=== PATIENT | male | born 1960 | race Caucasian/White ===

== ENCOUNTER 2021-05-29 14:30 | Inpatient (IN) | payer MEDICARE, OTHER, MEDICAID ==
[~2021-05-29] VITALS: Ht 193 cm; Wt 129.0 kg
--- NOTE | ~2021-05-29 | CON ---
[address] [address] CONSULTATION Name: TIANNA TRENT I Room: [address] IN .R.#: [id number] Admission: 05/29/21 Attend Phys: Oziel Etienne Discharge: Date of : 60 Report #: [id number] THIS REPORT FOR: cc: BLIL - No family physician/PCP BILL - No family physician/PCP Curly Up MD ~ DATE OF CONSULTATION: 06/23/2021 HISTORY OF PRESENT ILLNESS: This is a 61-year-old male patient who was unable to provide any history at all. This patient is unresponsive. The nurses tell me that he has been intermittently unresponsive. He sometime will open his eyes, but he did not do anything for me. He is being followed by multiple consultants for multiple problems. He is a DNR. 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 He was apparently on a prednisone before he came to the hospital. He apparently has an obstructive sleep apnea, diabetes, hypertension, Coumadin use as per records; I cannot tell anything because there is no history he gives. He has numerous other issues like acute kidney injuries and he is being followed by Nephrology. REVIEW OF SYSTEMS: A 14-point review of system was carried out from the records and this is all I can get. I cannot get any history of stroke or any other neurological history in this patient. FAMILY HISTORY: Unavailable. SOCIAL HISTORY: Also unavailable. PHYSICAL EXAMINATION: The patient's examination was very limited. To me, he did not even open his eyes, he did not move anything. He has no reflexes. He does not respond to the pain. He cannot tell about any other examination. He does move his eyes. His pupil looks normal size. He is morbidly obese. He is intubated. He is not on any sedation. LABORATORY DATA: Indicate decreased platelet count. He is in kidney failure. 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 IMPRESSION: This patient is unresponsive at the moment, but he was getting sedative. Although he was getting Versed, which is shorter acting, but he has a kidney problem, which will delay the excretion and he has a pretty significant cerebral atrophy as well as small vessel ischemic changes, which will delay the detoxification of those sedative, which has gone into the brain. So, his vascular clearance as well as clearance from the brain will [place] [address] CONSULTATION Name: TIANNA TRENT I Room: [address] IN .R.#: [id number] Admission: 05/29/21 Attend Phys: Oziel Etienne Discharge: Date of : 60 Report #: [id number] to give him some more time and presently continue supportive care. I will get an EEG done sometime in this patient and we will reevaluate this patient next week to see how much different he is. Thank you very much for this referral and if you have any questions, please feel free to contact me. By: [id number] Up MD /nt
--- NOTE | ~2021-05-29 | EEG ---
[address] [address] EEG STUDY REPORT Name: TIANNA TRENT I Room: [address] IN M.R.#: [id number] Admission: 05/29/21 Attend Phys: Oziel Etienne Discharge: Date of : 60 Report #: [id number] THIS REPORT FOR: cc: FAM - No family physician/PCP FAM - No family physician/PCP Curly Up MD ~ DATE OF SERVICE: 06/24/2021 This patient is being evaluated for altered mental status. EEG was done by placing the electrode by standard 10-20 system of electrode placement. Both referential and sequential montages were used for recording. Background activity in this patient's EEG is about 6 Hz and 15 microvolt. No active epileptiform activity was noticed. Photic stimulation is unremarkable. Activity is pretty slow and poorly formed. IMPRESSION: This is an abnormal EEG, which will be consistent with the diagnosis of encephalopathy caused by medications or metabolic problems. No active epileptiform activity was noticed. EEG is severely abnormal, but well-defined cortical activity is present. Thank you very much for this referral. By: 1236 [id number] Up MD /nt
[2021-05-29 14:41] VITALS: BP 125/62
[2021-05-29 14:54] LABS: HEMOGLOBIN 9.8 gm/dL (14.0-18.0); MCH 24.2 pg (26.0-34.0); MCHC 30.6 g/dL (28.0-37.0); MCV 79.3 fL (80.0-100.0); MPV 9.3 fl. (7.2-11.1); NUCLEATED RBCS 0 /100WBC; PLATELET COUNT* 144 thou/uL (150-400); RBC 4.04 mil/uL (4.50-6.00); RDW-CV 19.6 % (10.5-14.5); WBC 4.3 thou/uL (4.0-11.0)
[2021-05-29 15:05] LABS: CALCIUM 7.9 mg/dL (8.5-10.1); CREATININE 1.4 mg/dL (0.6-1.3); POTASSIUM 4.1 mmol/L (3.5-5.1)
[2021-05-29 15:15] LABS: ALBUMIN 2.8 g/dL (3.4-5.0); TOTAL BILIRUBIN 0.6 mg/dL (<0.1-1.0); TOTAL PROTEIN 6.8 g/dL (6.4-8.2)
[2021-05-29 15:27] LABS: ABSOLUTE LYMPHOCYTES 0.1 thou/uL (0.8-5.3); ABSOLUTE NEUTROPHILS 4.2 thou/uL (1.6-8.1)
[2021-05-29 15:28] LABS: ANISOCYTOSIS 2+
[2021-05-29 15:32] LABS: HYPOCHROMASIA 1+; MICROCYTES 1+; PLATELET ESTIMATE ADEQUATE
[2021-05-29 15:33] LABS: OVALOCYTES 1+; POLYCHROMASIA Occasional
[2021-05-29 15:37] LABS: BE 13.3 mmol/L (-2 to +3); pH 7.419 (7.340-7.450)
--- NOTE | 2021-05-29 15:42 | EKG ---
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: [facility] : 1960 Requested By: Win Coulter Order Number: [id number] MD: Salbador Licona Measurements Intervals [place] Rate: 77 P: 13 MI: 185 QRS: 75 QRSD: 141 T: -2 QT: 385 QTc: 436 Interpretive Statements Pacemaker spikes or probable artifact Sinus rhythm Nonspecific intraventricular conduction delay Consider anterolateral infarct of indeterminate age Minimal ST depression in the inferior leads Baseline wander in lead(s) V1,V2,V3,V4,V5 No previous ECG available for comparison Electronically Signed On 05-29-2021 15:42:27 LIVESTOCK AGENT by Salbador Licona [email or web address] <ELECTRONICALLY SIGNED> By: Salbador Licona MD, [facility] 05/29/21 1542 1452 145 Salbador Licona MD, [facility] /EPI
[2021-05-29 15:44] LABS: PO2 125.2 mmHg (75.0-100.0)
[2021-05-29] MEDS ORDERED: TIZANIDINE HCL4 M1 PO (16:20)
[2021-05-29] MEDS ORDERED: PROAIR HFA8.5 GM INH (16:20)
[2021-05-29] MEDS ORDERED: ALBUTEROL2.5 MG/31 INH (16:20)
[2021-05-29] MEDS ORDERED: NOVOLOG100 UNIT/2 SUBQ (16:21)
[2021-05-29] MEDS ORDERED: MAGNESIUM250 M1 PO (16:21)
[2021-05-29] MEDS ORDERED: HUMALOG100 UNIT/1 SUBQ (16:21)
[2021-05-29] MEDS ORDERED: ATIVAN0.5 M1 PO (16:22)
[2021-05-29] MEDS ORDERED: LACTULOSE20 GM/30 M PO (16:23)
[2021-05-29] MEDS ORDERED: ROXICODONE5 M2 PO (16:23)
[2021-05-29] MEDS ORDERED: CYMBALTA60 MG PO (16:24)
[2021-05-29] MEDS ORDERED: WARFARIN SODIUM10 MG PO (16:24)
[2021-05-29] MEDS ORDERED: FUROSEMIDE 40 M40 MG PO (16:24)
[2021-05-29] MEDS ORDERED: FLOMAX0.4 MG PO (16:24)
[2021-05-29] MEDS ORDERED: PREDNISONE 10 M10 MG PO (16:25)
[2021-05-29] MEDS ORDERED: ALLOPURINOL 10100 M3 PO (16:25)
[2021-05-29] MEDS ORDERED: PROTONIX40 M4 PO (16:25)
[2021-05-29] MEDS ORDERED: CARVEDILOL12.5 MG PO (16:25)
[2021-05-29] MEDS ORDERED: ADVAIR 100-501 EACH INH (16:25)
[2021-05-29] MEDS ORDERED: SINGULAIR 10 MG10 MG PO (16:26)
[2021-05-29] MEDS ORDERED: REQUIP 1 MG TABL1 M1 PO (16:26)
[2021-05-29 20:00] VITALS: BP 135/37
[2021-05-29 20:24] LABS: APTT 32.2 Seconds (25.0-31.3); INR 1.2; PROTIME 12.1 Seconds (9.20-11.50)
[2021-05-29 20:51] LABS: CALCIUM 7.8 mg/dL (8.5-10.1); CREATININE 1.5 mg/dL (0.6-1.3); MAGNESIUM 2.1 mg/dL (1.8-2.4); POTASSIUM 4.3 mmol/L (3.5-5.1)
[2021-05-29 22:30] VITALS: BP 135/37
[2021-05-29 22:36] LABS: CREATININE 1.5 mg/dL (0.6-1.3); POTASSIUM 4.7 mmol/L (3.5-5.1)
[2021-05-30 00:20] VITALS: BP 135/69
--- NOTE | 2021-05-30 04:18 | NUR ---
ATTEMPT TO PUT IN PRIETO CATHETER FAILED. PUREWICK POSSIBILITY DUE TO IMMOBILITY
[2021-05-30 04:23] LABS: HEMOGLOBIN 9.5 gm/dL (14.0-18.0); MCH 24.1 pg (26.0-34.0); RBC 3.94 mil/uL (4.50-6.00)
[2021-05-30 04:25] VITALS: BP 143/70
[2021-05-30 04:26] LABS: ABSOLUTE LYMPHOCYTES 0.1 thou/uL (0.8-5.3); ABSOLUTE NEUTROPHILS 1.3 thou/uL (1.6-8.1); BASOPHILS 0.7 %; HEMATOCRIT 31.4 % (42.0-52.0); LYMPHOCYTES 9.9 %; MCHC 30.3 g/dL (28.0-37.0); MCV 79.6 fL (80.0-100.0); MONOCYTES 3.3 %; MPV 9.7 fl. (7.2-11.1); NUCLEATED RBCS 1 /100WBC; PLATELET COUNT* 119 thou/uL (150-400); POLYS 86.1 %; RDW-CV 19.5 % (10.5-14.5)
[2021-05-30 04:42] LABS: INR 1.3; PROTIME 12.8 Seconds (9.20-11.50)
[2021-05-30 04:47] LABS: WBC 1.5 thou/uL (4.0-11.0)
[2021-05-30 04:50] LABS: ALBUMIN 2.6 g/dL (3.4-5.0); CREATININE 1.3 mg/dL (0.6-1.3); MAGNESIUM 2.2 mg/dL (1.8-2.4); POTASSIUM 4.2 mmol/L (3.5-5.1); TOTAL BILIRUBIN 0.5 mg/dL (<0.1-1.0); TOTAL PROTEIN 6.7 g/dL (6.4-8.2)
--- NOTE | 2021-05-30 04:52 | NUR ---
CRITICAL WBC 1.5. DR BOWERS MESSAGE SENT VIA YOU CALL AT [phone].
[2021-05-30 05:38] LABS: HEMOGLOBIN 9.4 gm/dL (14.0-18.0); MCH 24.1 pg (26.0-34.0); MCHC 30.4 g/dL (28.0-37.0); MCV 79.5 fL (80.0-100.0); MPV 9.2 fl. (7.2-11.1); NUCLEATED RBCS 0 /100WBC; PLATELET COUNT* 115 thou/uL (150-400); RDW-CV 19.9 % (10.5-14.5)
[2021-05-30 06:30] LABS: WBC 1.3 thou/uL (4.0-11.0)
[2021-05-30 08:30] LABS: ABSOLUTE LYMPHOCYTES 0.2 thou/uL (0.8-5.3); ABSOLUTE MONOCYTES 0.1 thou/uL (0.0-1.2)
[2021-05-30 08:31] LABS: ANISOCYTOSIS 1+; GIANT PLATELETS OCCASIONAL; HYPOCHROMASIA 1+; PLATELET ESTIMATE DECREASED
[2021-05-30 09:54] LABS: BE 10.1 mmol/L (-2 to +3); pH 7.407 (7.340-7.450)
[2021-05-30 09:58] LABS: PCO2 59.3 mmHg (35.0-45.0); PO2 146.7 mmHg (75.0-100.0)
[2021-05-30 12:32] VITALS: BP 136/61
--- NOTE | 2021-05-30 12:57 | 2DMMODE ---
[place] [address] 2 D/M-MODE ECHOCARDIOGRAM Name: TIANNA TRENT I Room: [address] IN [facility]#: [id number] Admission: 05/29/21 Attend Phys: Job Pierson Discharge: Date of : 60 Date of Service: 05/30/21 1257 Report #: [id number] THIS REPORT FOR: cc: FAM - No family physician/PCP FAM - No family physician/PCP Salbador Licona MD [facility] ~ APPROVED REPORT Study performed: 05/30/2021 11:00:38 EXAM: Comprehensive 2D, Doppler, and color-flow Echocardiogram Patient Location: In-Patient Room #: [facility] Status: routine BSA: 3.04 HR: 55 bpm BP: 143/70 mmHg Rhythm: NSR Other Information Technically limited study due to poor endocardial definition, body habitus. Indications COPD pulmonary edema 2D Dimensions IVSd: 13.12 (7-11mm) LVOT Diam: 27.62 (18-24mm) LVDd: 53.65 mm PWd: 14.38 (7-11mm) Ascending Ao: 39.68 (22-36mm) LVDs: 31.81 (25-40mm) Aortic Root: 42.64 mm Volumes Left Atrial Volume (Systole) LA ESV Index: 37.00 mL/m2 Aortic Valve AoV Peak Luis.: 1.34 m/s AO Peak Gr.: 7.16 mmHg LVOT Max P.83 mmHg AO Mean Gr.: 3.97 mmHg LVOT Mean P.45 mmHg LVOT Max V: 1.10 m/s AO V2 VTI: 31.81 cm LVOT Mean V: 0.72 m/[place] [address] 2 D/M-MODE ECHOCARDIOGRAM Name: TIANNA TRENT I Room: [address] IN ..#: [id number] Admission: 05/29/21 Attend Phys: Job Pierson Discharge: Date of : 60 Date of Service: 05/30/21 1257 Report #: [id number] ELIESER (VTI): 5.15 cm2 LVOT V1 VTI: 27.34 cm Mitral Valve E/A Ratio: 1.95 MV Decel. Time: 235.94 ms MV E Max Luis.: 1.21 m/s MV PHT: 68.42 ms MVA (PHT): 3.22 cm2 Pulmonary Valve PV Peak Luis.: 1.09 m/s PV Peak Gr.: 4.73 mmHg Left Ventricle The left ventricle is normal size. There is normal LV segmental wall motion. Mild concentric left ventricular hypertrophy. Left ventricular systolic function is normal. The left ventricular ejection fraction is within the normal range. LVEF is 55-60%. The left ventricular diastolic function is normal. Right Ventricle The right ventricle is normal size. The right ventricular systolic function is normal. Atria Left atrium is mildly dilated. The right atrium size is normal. Aortic Valve Mild aortic valve sclerosis. Mild aortic regurgitation. There is no aortic valvular stenosis. Mitral Valve The mitral valve is normal in structure. There is no mitral valve regurgitation noted. No evidence of mitral valve stenosis. Tricuspid Valve The tricuspid valve is normal in structure. There is no tricuspid valve regurgitation noted. Pulmonic Valve The pulmonary valve is normal in structure. There is no pulmonic valvular regurgitation. Great Vessels The aortic root is normal in size. IVC is normal in size and collapses >50% [place] [address] 2 D/M-MODE ECHOCARDIOGRAM Name: TIANNA TRENT I Room: [address] IN [facility]#: [id number] Admission: 05/29/21 Attend Phys: Job Pierson Discharge: Date of : 60 Date of Service: 05/30/21 [facility] Report #: [id number] Pericardium There is no pericardial effusion. Left pleural effusion. <Conclusion> The left ventricle is normal size. Mild concentric left ventricular hypertrophy. Left ventricular systolic function is normal. The left ventricular ejection fraction is within the normal range. LVEF is 55-60%. The left ventricular diastolic function is normal. The right ventricle is normal size. Left atrium is mildly dilated. Mild aortic valve sclerosis. Mild aortic regurgitation. There is no aortic valvular stenosis. The mitral valve is normal in structure. The tricuspid valve is normal in structure. IVC is normal in size and collapses >50% with inspiration. There is no pericardial effusion. There is normal LV segmental wall motion. <ELECTRONICALLY SIGNED> By: Salbador Licona MD, FACC 05/30/21 1257 1257 1257 Salbador Licona MD, FACC /INF
[2021-05-30 16:00] VITALS: BP 142/59
--- NOTE | 2021-05-30 16:46 | NUR ---
CM ASSESSMENT ASSESSMENT COMPLETED WITH PT (JACQUELINE TRENT [phone]). PT CAME TO [facility] FROM [facility] ([phone]). REPORTS PT DOES NOT WANT TO RETURN TO ANY SNF UPON DC AND ONLY WANTS TO DC HOME. PT OPEN TO DC HOME WITH HH AND ONLY WANTS REFERRAL TO [facility]. PT WILL NEED STRETCHER TRANSPORT UPON DC. CM TO FOLLOW. PT'S HOME IS A SINGLE STORY HOME WITH A RAMP AT ENTRY. PT USES A WALKER TO PIVOT AND A WHEELCHAIR FOR MOBILITY. PT USES 4L O2 AT HOME PROVIDED BY [facility] ([phone]) AND A TRILOGY PROVIDED BY [facility] ([phone]). PT COMPLETES ADLS. PT HAS BEEN TO SNF AT [facility] AND HAS HAD HH VIA [facility]. PT IS DPOA.
--- NOTE | 2021-05-30 19:30 | NUR ---
ASSUMED CARE AT 0720 THIS AM UNTIL PRESENT. THIS PATIENT IS VERY LARGE, AND HAS TESTED POSITIVE FOR COVID. HE IS A FPC PATIENT AT [facility]. PATIENT ON BIPAP 100. BREATH SOUNDS DIMINISHED. PATIENT WAS PLACED ON BARIATRIC BED AT 1200. HUGE BM CLEANED UP. PATIENT IS INCONTINENT OF URINE AND BM. PATIENT IS NOT GOOD AT HELPING MOVE IN BED. SAYS HE CANT HELP. PATIENT EDEMATOUS ALL OVER. STILL NEED UA AND SPUTUM CULTURES. UNABLE TO OBRTAIN. PATIENT HAD ULTRASOUND OF LOWER EXTREMITIES TODAY. PATIENT IS ALSO TO HAVE A CT OF CHEST, BUT UNABLE TO TOLERATE AT THIS TIME.
--- NOTE | 2021-05-30 19:49 | CON ---
[address] [address] CONSULTATION Name: ITANNA TRENT I Room: [address] IN .R.#: [id number] Admission: 05/29/21 Attend Phys: Oziel Etienne Discharge: Date of : 60 Report #: [id number] THIS REPORT FOR: cc: BILL - No family physician/PCP FAM - No family physician/PCP Gilles Sims MD ~ DATE OF CONSULTATION: 05/29/2021 3CONSULT HAS BEEN REQUESTED BY: Job Pierson DO. INDICATION FOR CONSULTATION: Acute on chronic hypercarbic respiratory failure/COVID-19. HISTORY OF PRESENT ILLNESS: This is a 61-year-old gentleman, past medical history includes a history of COPD. The patient is on Trelegy as well as 4 liters oxygen continuous at home. He has been using the prednisone at home. It is not known to me as to whether this is a long-term use. The patient has also been on Coumadin. It is not fully apparent as to whether he currently was on Coumadin at home. He has not been vaccinated for COVID-19. The patient is now admitted with acute shortness of breath. Currently, he is on 75% FiO2. He still has significant CO2 retention, but pH has now normalized and O2 saturation has come up to the high 90s. He does have a cough. There is not much sputum. There is significant swelling of lower extremities. He does report initially having had body aches. No known fever or chills. He did not have upper respiratory complaints initially. REVIEW OF SYSTEMS: For 12 points is negative except as mentioned above. PAST MEDICAL HISTORY: COPD, on oxygen long-term, on Trilogy long-term, possible long-term prednisone use. Obstructive sleep apnea, diabetes, hypertension. Coumadin use, indication not known at this time. Hypertension. The patient's current creatinine is 1.4. I do not have his baseline creatinine. Anal fissure, irritable bowel syndrome. SOCIAL HISTORY: Extensive history of smoking. ALLERGIES: NO KNOWN DRUG ALLERGIES. CURRENT MEDICATIONS: List in [employer] reviewed. HOME MEDICATIONS: List in [employer] reviewed. FAMILY HISTORY: No pertinent family [place] [address] CONSULTATION Name: TWANTIANNA Valero Room: [address]#: [id number] Admission: 05/29/21 Attend Phys: Oziel Etienne Discharge: Date of : 60 Report #: [id number] PHYSICAL EXAMINATION: GENERAL: He is alert, awake and oriented, but able to provide only a limited history on account of being on BiPAP, VITAL SIGNS: Records reviewed. Head is normocephalic and atraumatic. There is a BiPAP in place. He has a narrow airway. NECK: Does not show raised JVP, asymmetry, mass or lymph nodes. CHEST: Symmetrical expansion on inspection and palpation. On auscultation, breath sounds are equal, decreased. Expirations are prolonged. I do not hear any added sounds. HEART: Regular. There is no murmur. ABDOMEN: Soft and nontender. EXTREMITIES: Lower extremities show 2-3+ edema bilaterally. There are significant chronic venous changes consistent with chronic venous insufficiency. NEUROLOGIC: Moves all extremities bilaterally equally and spontaneously with no focal deficit identified. LABORATORY DATA: The patient's chest x-ray is a limited study and is reviewed. There are extensive bilateral infiltrates. The patient may have a pleural effusion on the left side as well. ASSESSMENT AND PLAN: 1. Acute on chronic hypoxemic and hypercarbic respiratory failure. He is currently on BiPAP with AVAPS mode. Depending on his oxygen needs, he could be kept on this or switch over to his home Trelegy. Recommend to keep him on either BiPAP and AVAPS mode or Trelegy while asleep, recommend using the same p.r.n. while awake. 2. COVID-19. Continue steroid. Considering a significant history of chronic obstructive pulmonary disease, he needs a higher dose of steroid, which is ordered. Recommend starting remdesivir. Recommend also giving him Actemra. 3. Chronic obstructive pulmonary disease exacerbation, dexamethasone as above. Also, we will treat him with nebulized bronchodilators. 4. Pulmonary infiltrates. Continue ceftriaxone. I increased the dose, added doxycycline. 5. Obstructive sleep apnea, see discussion above. 6. Chronic venous insufficiency/history of Coumadin use. We will try to clarify as to whether he is taking Coumadin currently or not. We will also check an INR. We will check an echo. He has significant chronic venous insufficiency. In case he is not currently on anticoagulation, then I would recommend obtaining venous Dopplers and we may in fact consider initiating anticoagulation as well in case his D-dimer is elevated. 7. Pleural effusions, I would recommend assessing further by CT chest without contrast. He may need a thoracentesis based on the CT results. 8. Deep vein thrombosis prophylaxis. See discussion above. 9. Hyperglycemia/history of diabetes. Insulin per primary service. [address] [place] [address] CONSULTATION Name: TIANNA TRENT Marylu Room: [address]#: [id number] Admission: 05/29/21 Attend Phys: Oziel Etienne Discharge: Date of : 60 Report #: [id number] 10. Gastrointestinal prophylaxis, Protonix. 11. Clostridium difficile prophylaxis, Lactinex. The patient is critically ill at this time. Total time spent providing critical care to this patient today exceeds 41 minutes. <ELECTRONICALLY SIGNED> By: Gilles Sims MD 05/30/21 1949 1848 1936Ajoanna Sims MD /nt
[2021-05-30 20:00] VITALS: BP 149/63
[2021-05-31] VITALS (30 sets, daily range): BP systolic 95–184; BP diastolic 43–93
[2021-05-31 04:42] LABS: ALBUMIN 2.8 g/dL (3.4-5.0); CALCIUM 8.2 mg/dL (8.5-10.1); CREATININE 1.3 mg/dL (0.6-1.3); MAGNESIUM 2.3 mg/dL (1.8-2.4); PHOSPHORUS* 4.5 mg/dL (2.5-4.9); POTASSIUM 4.3 mmol/L (3.5-5.1); TOTAL BILIRUBIN 0.5 mg/dL (<0.1-1.0); TOTAL PROTEIN 6.7 g/dL (6.4-8.2)
[2021-05-31 04:56] LABS: ABSOLUTE LYMPHOCYTES 0.2 thou/uL (0.8-5.3); ABSOLUTE MONOCYTES 0.1 thou/uL (0.0-1.2); ABSOLUTE NEUTROPHILS 2.5 thou/uL (1.6-8.1); BASOPHILS 0.9 %; EOSINOPHILS 0.1 %; HEMATOCRIT 34.2 % (42.0-52.0); LYMPHOCYTES 7.4 %; MCHC 29.4 g/dL (28.0-37.0); MCV 81.7 fL (80.0-100.0); MONOCYTES 3.6 %; MPV 10.5 fl. (7.2-11.1); NUCLEATED RBCS 0 /100WBC; PLATELET COUNT* 147 thou/uL (150-400); RBC 4.18 mil/uL (4.50-6.00); RDW-CV 19.6 % (10.5-14.5); WBC 2.8 thou/uL (4.0-11.0)
[2021-05-31 06:22] LABS: APTT 33.9 Seconds (25.0-31.3); INR 1.3; PROTIME 13.1 Seconds (9.20-11.50)
[2021-05-31 08:39] LABS: BE 9.7 mmol/L (-2 to +3)
[2021-05-31 08:42] LABS: PCO2 59.5 mmHg (35.0-45.0); PO2 133.5 mmHg (75.0-100.0)
--- NOTE | 2021-05-31 09:50 | NUR ---
Pt is admitted to the hospital on 05/29/21 with Respiratory Failure/Covid 19. Pt is currently on Bipap. Called - Kira at: to complete assessment. Pt lives with in a house with a handicapped accessible ramp in the front. Pt was mainly wheelchair bound and required 24 hour care. Pt has a walker, wheelchair, and lift chair. Pt had a recent stay at [facility] (approximately 7 days in 04/2021). Pt has a hx of [facility]. Pt fills prescriptions at [facility] on [address] Pt's PCP is Dr. Kaleb Mercer. is asking for a virtual reality visit. Will contact service [facility] to arrange this. is really wanting to bring pt home vs SNF and reports she can take care of him at home as long as she can transfer him. is asking if we have correct health insurance info and reports pt has [employer] as a secondary not [place] Medicaid as listed. Will share a copy of card with admitting. CM to continue to follow for discharge planning.
[2021-05-31 17:11] LABS: BE 14.4 mmol/L (-2 to +3); PO2 75.8 mmHg (75.0-100.0)
[2021-05-31 17:14] LABS: PCO2 70.8 mmHg (35.0-45.0)
[2021-05-31 18:21] LABS: CALCIUM 6.5 mg/dL (8.5-10.1); CREATININE 1.1 mg/dL (0.6-1.3); MAGNESIUM 1.9 mg/dL (1.8-2.4)
[2021-05-31 18:24] LABS: POTASSIUM 3.1 mmol/L (3.5-5.1)
--- NOTE | 2021-05-31 19:29 | NUR ---
pt self extubated this afternoon. A&O x3. Anxious. Precedex gtt. Wants water and food. updated. CLRT.
[2021-06-01] VITALS (65 sets, daily range): BP systolic 92–178; BP diastolic 49–84
[2021-06-01 00:28] LABS: BE 11.6 mmol/L (-2 to +3); PO2 63.8 mmHg (75.0-100.0); pH 7.363 (7.340-7.450)
[2021-06-01 00:30] LABS: PCO2 71.2 mmHg (35.0-45.0)
--- NOTE | 2021-06-01 01:58 | NUR ---
DR. CORTES WAS CALLED AT 2104 FOR PATIENT AGITATED ON BIPAP. VITALS WERE READ OFF AND NOTIFIED OF CURRENT PRECEDEX DRIP RUNNING WITH NO AVAIL TO HELP PATIENT REMAIN CALM. DUE TO AGITATION, DESATURATION, AND PATIENT DECOMPENSATING, DR. CORTES ORDERED FOR PATIENT TO BE REINTUBATED. ER DR WAS CALLED AND INTUBATION WAS PERFORMED. 2116 - TIMEOUT 2116 - 20MG ETOMIDATE 2118 - 150MG SUCCINYLCHOLINE 2119 - INTUBATION 2121 - X-RAY CALLED FOR STAT CXR
[2021-06-01 04:45] LABS: ABSOLUTE LYMPHOCYTES 0.1 thou/uL (0.8-5.3); ABSOLUTE NEUTROPHILS 1.7 thou/uL (1.6-8.1); BASOPHILS 0.9 %; HEMATOCRIT 28.4 % (42.0-52.0); HEMOGLOBIN 8.5 gm/dL (14.0-18.0); LYMPHOCYTES 6.5 %; MCH 24.3 pg (26.0-34.0); MCHC 29.8 g/dL (28.0-37.0); MCV 81.6 fL (80.0-100.0); MONOCYTES 2.4 %; MPV 10.1 fl. (7.2-11.1); NUCLEATED RBCS 0 /100WBC; PLATELET COUNT* 106 thou/uL (150-400); POLYS 90.2 %; RBC 3.48 mil/uL (4.50-6.00); RDW-CV 19.6 % (10.5-14.5)
[2021-06-01 05:13] LABS: ALBUMIN 2.6 g/dL (3.4-5.0); CREATININE 1.5 mg/dL (0.6-1.3); MAGNESIUM 2.4 mg/dL (1.8-2.4); TOTAL BILIRUBIN 0.6 mg/dL (<0.1-1.0); TOTAL PROTEIN 5.5 g/dL (6.4-8.2)
[2021-06-01 05:15] LABS: PHOSPHORUS* 4.2 mg/dL (2.5-4.9)
[2021-06-01 05:22] LABS: POTASSIUM 4.2 mmol/L (3.5-5.1)
[2021-06-01 06:22] LABS: WBC 1.9 thou/uL (4.0-11.0)
[2021-06-01 09:33] LABS: BE 15.8 mmol/L (-2 to +3); PO2 67.4 mmHg (75.0-100.0); pH 7.376 (7.340-7.450)
[2021-06-01 09:43] LABS: PCO2 76.1 mmHg (35.0-45.0)
[2021-06-01 14:33] LABS: BE 11.7 mmol/L (-2 to +3); PO2 84.8 mmHg (75.0-100.0); pH 7.448 (7.340-7.450)
[2021-06-01 14:38] LABS: PCO2 55.3 mmHg (35.0-45.0)
--- NOTE | 2021-06-01 15:16 | NUR ---
ICU Rounds: Pt remains intubated and sedated Isolation: Pt remains in Covid isolation Intubated: 06/01/21 Oxygen Needs: 100%Fio2 Peep of 14 Living Situation: Lives with - Kira at: DPOA:None Discharge Plan: Unknown at this time Arranged for to have facetime/virtual visit with pt today. continues to hope we can wean pt off ventilator as she would really like for him to be able to come home vs going to SNF - as pt was recently at [facility]. They extubated pt -however he went into respiratory distress and he had to be re-intubated. CM to continue to follow for discharge planning.
[2021-06-01 16:16] LABS: CALCIUM 8.1 mg/dL (8.5-10.1); CREATININE 1.5 mg/dL (0.6-1.3); MAGNESIUM 2.3 mg/dL (1.8-2.4); POTASSIUM 3.9 mmol/L (3.5-5.1)
--- NOTE | 2021-06-01 17:04 | NUR ---
DR. CORTES ROUNDED ABOUT 1100 TODAY. PT WAS DE-SATING AT THIS TIME. ONE TIME DOSE OF ATIVAN IVP WAS GIVEN AND PT WAS CHANGED FROM CMV TO PC. TOLD ABOUT ABG RESULTS. PT IS SO HARD TO SEDATE, IT WAS DECIDED TO UP THE MAX DOSE OF VERSED TO 20 MG/HR AND THE MAX DOSE OF FENTANYL TO 200 MCG/HR. ATIVAN BOLUSES ALSO ADDED TO THE MAR. PER DR. CORTES AT 1500, ANESTHESIA CAME AND PLACED AN ART LINE. LAURA WAS CALLED FOR CONSENT AND GIVEN AN UPDATE. PT BRADYCARDIA IS STABLE. TF RESTARTED. REPEAT ABG AND BMP ORDERED. REPEAT ABG RESULTS COMMUNICATED TO DR. CORTES.
[2021-06-02] VITALS (82 sets, daily range): BP systolic 133–239; BP diastolic 47–116
[2021-06-02 05:52] LABS: HEMOGLOBIN 8.3 gm/dL (14.0-18.0); MCH 24.5 pg (26.0-34.0); MCHC 30.8 g/dL (28.0-37.0); MCV 79.7 fL (80.0-100.0); MPV 10.8 fl. (7.2-11.1); NUCLEATED RBCS 0 /100WBC; PLATELET COUNT* 106 thou/uL (150-400); RBC 3.39 mil/uL (4.50-6.00); RDW-CV 19.8 % (10.5-14.5)
[2021-06-02 06:00] LABS: CREATININE 1.4 mg/dL (0.6-1.3); MAGNESIUM 2.5 mg/dL (1.8-2.4); PHOSPHORUS* 2.7 mg/dL (2.5-4.9); POTASSIUM 3.7 mmol/L (3.5-5.1)
[2021-06-02 06:49] LABS: APTT 31.9 Seconds (25.0-31.3); INR 1.4; PROTIME 13.9 Seconds (9.20-11.50)
[2021-06-02 07:56] LABS: ABSOLUTE LYMPHOCYTES 0.2 thou/uL (0.8-5.3); ABSOLUTE NEUTROPHILS 1.8 thou/uL (1.6-8.1); ANISOCYTOSIS 1+; HYPOCHROMASIA 2+; PLATELET ESTIMATE DECREASED
[2021-06-02 16:50] LABS: % SATURATION 20 % (20-39); IRON 56 ug/dL (50-175)
[2021-06-02 17:37] LABS: BE 9.8 mmol/L (-2 to +3); PCO2 46.8 mmHg (35.0-45.0); pH 7.483 (7.340-7.450)
--- NOTE | 2021-06-02 20:08 | NUR ---
PT HAVING HYPERTENSION ISSUES, DR. CAMPA CALLED. HYDRALAZINE ORDERED.
[2021-06-03] VITALS (46 sets, daily range): BP systolic 124–178; BP diastolic 38–78
[2021-06-03 04:36] LABS: ABSOLUTE LYMPHOCYTES 0.1 thou/uL (0.8-5.3); ABSOLUTE MONOCYTES 0.1 thou/uL (0.0-1.2); ABSOLUTE NEUTROPHILS 3.5 thou/uL (1.6-8.1); BASOPHILS 0.4 %; HEMATOCRIT 27.8 % (42.0-52.0); HEMOGLOBIN 8.4 gm/dL (14.0-18.0); LYMPHOCYTES 3.3 %; MCH 24.5 pg (26.0-34.0); MCHC 30.3 g/dL (28.0-37.0); MCV 80.9 fL (80.0-100.0); MONOCYTES 2.2 %; MPV 10.2 fl. (7.2-11.1); NUCLEATED RBCS 0 /100WBC; PLATELET COUNT* 119 thou/uL (150-400); POLYS 94.1 %; RBC 3.44 mil/uL (4.50-6.00); WBC 3.7 thou/uL (4.0-11.0)
[2021-06-03 05:04] LABS: INR 1.3; PROTIME 13.6 Seconds (9.20-11.50)
[2021-06-03 05:25] LABS: ALBUMIN 2.5 g/dL (3.4-5.0); CREATININE 1.4 mg/dL (0.6-1.3); POTASSIUM 3.2 mmol/L (3.5-5.1); TOTAL BILIRUBIN 0.5 mg/dL (<0.1-1.0); TOTAL PROTEIN 5.3 g/dL (6.4-8.2)
[2021-06-03 05:53] LABS: BE 10.3 mmol/L (-2 to +3); PO2 67.7 mmHg (75.0-100.0); pH 7.449 (7.340-7.450)
[2021-06-03 05:55] LABS: PCO2 52.6 mmHg (35.0-45.0)
[2021-06-04] VITALS (12 sets, daily range): BP systolic 139–166; BP diastolic 42–53
[2021-06-04 08:14] LABS: ABSOLUTE BASOPHILS 0.1 thou/uL (0.0-0.2); ABSOLUTE LYMPHOCYTES 0.1 thou/uL (0.8-5.3); ABSOLUTE MONOCYTES 0.1 thou/uL (0.0-1.2); ABSOLUTE NEUTROPHILS 7.4 thou/uL (1.6-8.1); HEMATOCRIT 30.1 % (42.0-52.0); HEMOGLOBIN 8.9 gm/dL (14.0-18.0); LYMPHOCYTES 1.4 %; MCH 24.2 pg (26.0-34.0); MCHC 29.5 g/dL (28.0-37.0); MONOCYTES 1.9 %; MPV 10.4 fl. (7.2-11.1); NUCLEATED RBCS 0 /100WBC; PLATELET COUNT* 124 thou/uL (150-400); POLYS 95.7 %; RBC 3.67 mil/uL (4.50-6.00); RDW-CV 20.2 % (10.5-14.5); WBC 7.8 thou/uL (4.0-11.0)
[2021-06-04 08:18] LABS: CALCIUM 8.4 mg/dL (8.5-10.1); CREATININE 1.5 mg/dL (0.6-1.3); MAGNESIUM 2.7 mg/dL (1.8-2.4); POTASSIUM 3.7 mmol/L (3.5-5.1)
[2021-06-04 09:43] LABS: pH 7.334 (7.340-7.450)
[2021-06-04 09:45] LABS: PCO2 68.6 mmHg (35.0-45.0)
[2021-06-04 09:46] LABS: PO2 53.2 mmHg (75.0-100.0)
[2021-06-04 10:57] LABS: BE 8.7 mmol/L (-2 to +3); PCO2 48.2 mmHg (35.0-45.0); pH 7.461 (7.340-7.450)
[2021-06-04 10:59] LABS: PO2 125.5 mmHg (75.0-100.0)
[2021-06-04 13:27] LABS: PO2 77.7 mmHg (75.0-100.0); pH 7.438 (7.340-7.450)
[2021-06-04 13:32] LABS: PCO2 50.2 mmHg (35.0-45.0)
--- NOTE | 2021-06-04 16:16 | NUR ---
ICU Rounds: Pt remains intubated and sedated Isolation: Still in Covid Isolation Intubated: 05/31/21 Living Situation: Lives with spouse - Kira DPOA: None Oxygen Needs: 100%Fio2 Peep of 16 D/C Plan: Anticipating need for LTACH CM to continue to follow for discharge planning.
--- NOTE | 2021-06-04 19:23 | NUR ---
PATIENT DESATS OFF AND ON THROUGHOUT THE DAY REQUIRING TO BE BAGGED X3. PROPOFOL STARTED. INSLULIN GTT. D5W. URINE OUTPUT ONLY 85 ML'S. PHYSICIAN NOTIFIED OF DECREASED URINE OUTPUT. CLRT. BLOOD SUGARS HIGH, TITRATING INSULIN GTT. IV LASIX 60MG. K+. REMDESIVIR. ZOSYN. AFEBRILE. 100% FIO2 VENT.
[2021-06-04 20:15] LABS: CALCIUM 8.2 mg/dL (8.5-10.1); CREATININE 1.7 mg/dL (0.6-1.3); MAGNESIUM 2.6 mg/dL (1.8-2.4); POTASSIUM 3.6 mmol/L (3.5-5.1)
[2021-06-04 20:21] LABS: LIPASE 72 U/L (73-393); TRIGLYCERIDE 523 mg/dL (<150)
[2021-06-05] VITALS (35 sets, daily range): BP systolic 145–211; BP diastolic 45–61
[2021-06-05 04:38] LABS: APTT 25.4 Seconds (25.0-31.3); INR 1.3; PROTIME 13.5 Seconds (9.20-11.50)
[2021-06-05 04:43] LABS: ALBUMIN 2.5 g/dL (3.4-5.0); CALCIUM 8.4 mg/dL (8.5-10.1); CREATININE 1.5 mg/dL (0.6-1.3); MAGNESIUM 2.7 mg/dL (1.8-2.4); POTASSIUM 3.8 mmol/L (3.5-5.1); TOTAL BILIRUBIN 0.4 mg/dL (<0.1-1.0); TOTAL PROTEIN 5.3 g/dL (6.4-8.2)
[2021-06-05 05:00] LABS: ABSOLUTE LYMPHOCYTES 0.1 thou/uL (0.8-5.3); ABSOLUTE MONOCYTES 0.1 thou/uL (0.0-1.2); ABSOLUTE NEUTROPHILS 6.6 thou/uL (1.6-8.1); BASOPHILS 0.6 %; HEMATOCRIT 31.3 % (42.0-52.0); HEMOGLOBIN 9.3 gm/dL (14.0-18.0); MCH 24.4 pg (26.0-34.0); MCHC 29.8 g/dL (28.0-37.0); MCV 81.8 fL (80.0-100.0); MONOCYTES 1.2 %; MPV 10.8 fl. (7.2-11.1); NUCLEATED RBCS 0 /100WBC; PLATELET COUNT* 119 thou/uL (150-400); POLYS 96.2 %; RBC 3.83 mil/uL (4.50-6.00); RDW-CV 20.1 % (10.5-14.5); WBC 6.8 thou/uL (4.0-11.0)
[2021-06-05 08:08] LABS: BE 7.7 mmol/L (-2 to +3); PO2 69.9 mmHg (75.0-100.0)
[2021-06-05 08:11] LABS: PCO2 62.6 mmHg (35.0-45.0)
[2021-06-05 17:56] LABS: CALCIUM 6.7 mg/dL (8.5-10.1); MAGNESIUM 2.2 mg/dL (1.8-2.4); POTASSIUM 4.1 mmol/L (3.5-5.1)
[2021-06-05 18:13] LABS: CREATININE 1.3 mg/dL (0.6-1.3)
[2021-06-05 19:27] LABS: CALCIUM 8.5 mg/dL (8.5-10.1); CREATININE 1.5 mg/dL (0.6-1.3); MAGNESIUM 2.6 mg/dL (1.8-2.4); POTASSIUM 4.4 mmol/L (3.5-5.1)
[2021-06-06] VITALS (11 sets, daily range): BP systolic 117–148; BP diastolic 34–52
[2021-06-06 03:52] LABS: HEMATOCRIT 35.1 % (42.0-52.0); MCH 24.2 pg (26.0-34.0); MCHC 28.5 g/dL (28.0-37.0); MCV 84.9 fL (80.0-100.0); MPV 10.6 fl. (7.2-11.1); NUCLEATED RBCS 0 /100WBC; PLATELET COUNT* 147 thou/uL (150-400); RBC 4.14 mil/uL (4.50-6.00); RDW-CV 20.7 % (10.5-14.5); WBC 12.1 thou/uL (4.0-11.0)
[2021-06-06 04:11] LABS: ALBUMIN 2.7 g/dL (3.4-5.0); CALCIUM 8.5 mg/dL (8.5-10.1); CREATININE 1.8 mg/dL (0.6-1.3); MAGNESIUM 2.8 mg/dL (1.8-2.4); PHOSPHORUS* 5.4 mg/dL (2.5-4.9); POTASSIUM 4.3 mmol/L (3.5-5.1); TOTAL BILIRUBIN 0.4 mg/dL (<0.1-1.0); TOTAL PROTEIN 5.7 g/dL (6.4-8.2)
[2021-06-06 06:53] LABS: ABSOLUTE LYMPHOCYTES 0.6 thou/uL (0.8-5.3); ABSOLUTE MONOCYTES 0.1 thou/uL (0.0-1.2); ABSOLUTE NEUTROPHILS 11.4 thou/uL (1.6-8.1)
[2021-06-06 06:54] LABS: PLATELET ESTIMATE DECREASED
[2021-06-06 06:55] LABS: ANISOCYTOSIS 2+; HYPOCHROMASIA 1+
[2021-06-06 07:47] LABS: BE 1.3 mmol/L (-2 to +3); PO2 71.1 mmHg (75.0-100.0)
[2021-06-06 07:50] LABS: PCO2 89.5 mmHg (35.0-45.0); pH 7.167 (7.340-7.450)
[2021-06-06 11:00] LABS: BE 4.6 mmol/L (-2 to +3); PO2 70.4 mmHg (75.0-100.0)
[2021-06-06 11:04] LABS: pH 7.278 (7.340-7.450)
[2021-06-06 11:05] LABS: PCO2 72.1 mmHg (35.0-45.0)
[2021-06-06 12:44] LABS: URINE BLOOD NEGATIVE (Negative); URINE CLARITY CLEAR; URINE COLOR YELLOW; URINE GLUCOSE-RANDOM NEGATIVE (Negative); URINE KETONES NEGATIVE (Negative); URINE LEUKOCYTES NEGATIVE (Negative); URINE NITRITE NEGATIVE (Negative); URINE PROTEIN NEGATIVE (Negative); URINE SPECIFIC GRAVITY 1.015 (1.005-1.030); URINE UROBILINOGEN 0.2 E.U./dl (0.2-1.0)
[2021-06-06 12:45] LABS: ICTOTEST (BILI CONFIRMATORY) Negative (Negative); URINE BILIRUBIN 1+ (Negative)
--- NOTE | 2021-06-06 16:26 | NUR ---
ICU Rounds: Pt remains intubated and sedated Isolation: Still in COVID isolation Intubated: 05/31/21 Living Situation: Lives with - Kira DPOA: None Oxygen needs: 100% Fio2 Peep of 14 D/C Plan: LTACH vs SNF Classifications Officer Cc/Cm reports pt is not doing well. Spoke with Hospitalist and he is to call to discuss current condition. CM to continue to follow for discharge needs.
[2021-06-06 17:08] LABS: BE 2.6 mmol/L (-2 to +3); PCO2 47.5 mmHg (35.0-45.0); PO2 67.9 mmHg (75.0-100.0); pH 7.389 (7.340-7.450)
[2021-06-06 18:24] LABS: CALCIUM 8.1 mg/dL (8.5-10.1); CREATININE 2.1 mg/dL (0.6-1.3); MAGNESIUM 2.5 mg/dL (1.8-2.4); POTASSIUM 4.4 mmol/L (3.5-5.1)
[2021-06-07] VITALS (50 sets, daily range): BP systolic 108–183; BP diastolic 32–62
[2021-06-07 04:44] LABS: MAGNESIUM 2.5 mg/dL (1.8-2.4); PHOSPHORUS* 5.5 mg/dL (2.5-4.9)
[2021-06-07 04:46] LABS: ALBUMIN 2.4 g/dL (3.4-5.0); CREATININE 2.4 mg/dL (0.6-1.3); POTASSIUM 4.6 mmol/L (3.5-5.1); TOTAL BILIRUBIN 0.4 mg/dL (<0.1-1.0)
[2021-06-07 05:12] LABS: ABSOLUTE LYMPHOCYTES 0.2 thou/uL (0.8-5.3); ABSOLUTE MONOCYTES 0.3 thou/uL (0.0-1.2); ABSOLUTE NEUTROPHILS 7.9 thou/uL (1.6-8.1); BASOPHILS 0.4 %; HEMATOCRIT 29.8 % (42.0-52.0); LYMPHOCYTES 2.1 %; MCHC 30.1 g/dL (28.0-37.0); MONOCYTES 3.3 %; MPV 11.1 fl. (7.2-11.1); NUCLEATED RBCS 0 /100WBC; PLATELET COUNT* 117 thou/uL (150-400); POLYS 94.2 %; RBC 3.59 mil/uL (4.50-6.00); RDW-CV 20.3 % (10.5-14.5); WBC 8.4 thou/uL (4.0-11.0)
[2021-06-07 06:09] LABS: APTT 30.4 Seconds (25.0-31.3); INR 1.3
--- NOTE | 2021-06-07 07:40 | NUR ---
PT REMAINS INTUBATED AND SEDATED. NO ACUTE CHANGES THIS SHIFT. ASSESSMENTS COMPLETE CHARTED. WILL CONT. TO MONITOR.
[2021-06-07 08:31] LABS: BE 2.4 mmol/L (-2 to +3)
[2021-06-07 08:42] LABS: PCO2 67.2 mmHg (35.0-45.0); PO2 58.7 mmHg (75.0-100.0); pH 7.274 (7.340-7.450)
--- NOTE | 2021-06-07 16:09 | NUR ---
lalo to use dialysis catheter line to start hdy per dr. Travis
[2021-06-07 16:30] LABS: BE 0.5 mmol/L (-2 to +3)
[2021-06-07 16:37] LABS: PCO2 58.9 mmHg (35.0-45.0); pH 7.291 (7.340-7.450)
[2021-06-07 16:38] LABS: PO2 54.3 mmHg (75.0-100.0)
--- NOTE | 2021-06-07 19:56 | NUR ---
PT SEDATED-DRIP TITRATION PER DR. CORTES PER DR. CORTES, IF PT'S BP DROP DURING HDY TODAY, STOP PROPOFOL DRIP-REPOORT ENDORSED TO WIRE TINNER RN.
[2021-06-07 22:25] LABS: CALCIUM 8.3 mg/dL (8.5-10.1); CREATININE 2.2 mg/dL (0.6-1.3); MAGNESIUM 2.7 mg/dL (1.8-2.4); POTASSIUM 4.8 mmol/L (3.5-5.1)
[2021-06-07 23:11] LABS: ABSOLUTE LYMPHOCYTES 0.1 thou/uL (0.8-5.3); ABSOLUTE MONOCYTES 0.2 thou/uL (0.0-1.2); ABSOLUTE NEUTROPHILS 7.5 thou/uL (1.6-8.1); BASOPHILS 0.2 %; EOSINOPHILS 0.1 %; HEMATOCRIT 29.4 % (42.0-52.0); HEMOGLOBIN 8.9 gm/dL (14.0-18.0); LYMPHOCYTES 1.1 %; MCH 24.7 pg (26.0-34.0); MCHC 30.3 g/dL (28.0-37.0); MCV 81.6 fL (80.0-100.0); MONOCYTES 2.9 %; MPV 10.8 fl. (7.2-11.1); NUCLEATED RBCS 0 /100WBC; PLATELET COUNT* 106 thou/uL (150-400); POLYS 95.7 %; RDW-CV 20.7 % (10.5-14.5); WBC 7.9 thou/uL (4.0-11.0)
[2021-06-08] VITALS (33 sets, daily range): BP systolic 117–171; BP diastolic 38–60
[2021-06-08 06:25] LABS: ABSOLUTE BASOPHILS 0.1 thou/uL (0.0-0.2); ABSOLUTE LYMPHOCYTES 0.1 thou/uL (0.8-5.3); ABSOLUTE MONOCYTES 0.2 thou/uL (0.0-1.2); ABSOLUTE NEUTROPHILS 6.3 thou/uL (1.6-8.1); BASOPHILS 0.8 %; HEMATOCRIT 28.5 % (42.0-52.0); HEMOGLOBIN 8.6 gm/dL (14.0-18.0); LYMPHOCYTES 2.2 %; MCH 24.7 pg (26.0-34.0); MCHC 30.3 g/dL (28.0-37.0); MCV 81.4 fL (80.0-100.0); MONOCYTES 2.3 %; MPV 11.1 fl. (7.2-11.1); NUCLEATED RBCS 0 /100WBC; PLATELET COUNT* 99 thou/uL (150-400); POLYS 94.7 %; RBC 3.51 mil/uL (4.50-6.00); RDW-CV 20.7 % (10.5-14.5); WBC 6.7 thou/uL (4.0-11.0)
[2021-06-08 07:34] LABS: ALBUMIN 2.4 g/dL (3.4-5.0); CALCIUM 8.1 mg/dL (8.5-10.1); CREATININE 2.2 mg/dL (0.6-1.3); MAGNESIUM 2.3 mg/dL (1.8-2.4); POTASSIUM 4.3 mmol/L (3.5-5.1); TOTAL BILIRUBIN 0.4 mg/dL (<0.1-1.0)
[2021-06-08 08:50] LABS: BE 0.1 mmol/L (-2 to +3)
[2021-06-08 08:53] LABS: PCO2 61.2 mmHg (35.0-45.0); PO2 57.9 mmHg (75.0-100.0); pH 7.276 (7.340-7.450)
[2021-06-08 14:12] LABS: BE 1.8 mmol/L (-2 to +3); PO2 65.5 mmHg (75.0-100.0); pH 7.344 (7.340-7.450)
--- NOTE | 2021-06-08 16:32 | NUR ---
ICU Rounds: Remains Intubated and Sedated Isolation: Still in Covid Isolation Code Status: Full Code Intubated: 05/31/21 Oxygen Needs: 100%Fio2/ 10 of Peep Living Situation: Lives with - Kira DPOA: None D/C Plan - Unknown as pt is not progressing as hoped. requesting meeting. She knows things are not looking good but she is still hoping pt will pull through. But if he does pass - she wants him transferred to [facility] on [address] in [place], [place]. Spoke with Nurse and we completed paperwork and placed on chart with name and contact information for home so staff is aware. has decided to take pt's Trilogy back home. Assisted to her car and provided empathy and support - pt and spouse just lost dog of 16 years and she is coming to the realization that her spouse may not be coming home. Cm to continue to follow for discharge planning.
--- NOTE | 2021-06-08 19:16 | NUR ---
Patient remains inutabted and sedated. Critical ABGs addressed by , patient destats during ORAL care and turns. Doctor made aware. in today. Care and treatment discussed with doctors. CRRT was ordered and will be started by maintenance mechanic 2nd shift. Please see assessment and labs for further details. Will continue to monitor.
[2021-06-08 23:06] LABS: HEPATITIS B SURFACE AG Negative (Negative)
[2021-06-09] VITALS (27 sets, daily range): BP systolic 101–171; BP diastolic 50–63
[2021-06-09 05:23] LABS: CALCIUM 8.6 mg/dL (8.5-10.1); CREATININE 2.5 mg/dL (0.6-1.3); MAGNESIUM 2.8 mg/dL (1.8-2.4); PHOSPHORUS* 7.6 mg/dL (2.5-4.9); TOTAL BILIRUBIN 0.6 mg/dL (<0.1-1.0); TOTAL PROTEIN 6.5 g/dL (6.4-8.2)
[2021-06-09 07:55] LABS: BE -1.4 mmol/L (-2 to +3)
[2021-06-09 08:07] LABS: PCO2 66.7 mmHg (35.0-45.0); pH 7.232 (7.340-7.450)
[2021-06-09 08:08] LABS: PO2 51.4 mmHg (75.0-100.0)
[2021-06-09 08:26] LABS: ABSOLUTE BASOPHILS 0.1 thou/uL (0.0-0.2); ABSOLUTE LYMPHOCYTES 0.3 thou/uL (0.8-5.3); ABSOLUTE MONOCYTES 0.5 thou/uL (0.0-1.2); ABSOLUTE NEUTROPHILS 18.8 thou/uL (1.6-8.1); BASOPHILS 0.4 %; HEMATOCRIT 38.9 % (42.0-52.0); LYMPHOCYTES 1.4 %; MCH 24.1 pg (26.0-34.0); MCHC 29.3 g/dL (28.0-37.0); MCV 82.2 fL (80.0-100.0); MONOCYTES 2.4 %; MPV 11.5 fl. (7.2-11.1); NUCLEATED RBCS 0 /100WBC; PLATELET COUNT* 149 thou/uL (150-400); POLYS 95.8 %; RBC 4.73 mil/uL (4.50-6.00); RDW-CV 21.6 % (10.5-14.5); WBC 19.7 thou/uL (4.0-11.0)
[2021-06-09 08:27] LABS: HEMOGLOBIN 11.4 gm/dL (14.0-18.0)
[2021-06-09 10:05] LABS: BE 0.5 mmol/L (-2 to +3)
[2021-06-09 10:08] LABS: pH 7.268 (7.340-7.450)
[2021-06-09 10:09] LABS: PCO2 64.5 mmHg (35.0-45.0); PO2 57.5 mmHg (75.0-100.0)
[2021-06-09 13:22] LABS: BE 2.3 mmol/L (-2 to +3); PCO2 47.3 mmHg (35.0-45.0); PO2 63.4 mmHg (75.0-100.0); pH 7.388 (7.340-7.450)
[2021-06-09 13:44] LABS: CALCIUM 8.4 mg/dL (8.5-10.1); CREATININE 2.5 mg/dL (0.6-1.3); MAGNESIUM 2.6 mg/dL (1.8-2.4); POTASSIUM 4.4 mmol/L (3.5-5.1)
[2021-06-10] VITALS (35 sets, daily range): BP systolic 92–154; BP diastolic 43–60
[2021-06-10 03:19] LABS: HEMATOCRIT 35.6 % (42.0-52.0); HEMOGLOBIN 11.1 gm/dL (14.0-18.0); MCH 24.5 pg (26.0-34.0); MCHC 31.2 g/dL (28.0-37.0); MCV 78.5 fL (80.0-100.0); NUCLEATED RBCS 0 /100WBC; PLATELET COUNT* 99 thou/uL (150-400); RBC 4.54 mil/uL (4.50-6.00); RDW-CV 21.2 % (10.5-14.5); WBC 11.4 thou/uL (4.0-11.0)
[2021-06-10 03:47] LABS: APTT 28.4 Seconds (25.0-31.3); INR 1.1; PROTIME 10.9 Seconds (9.20-11.50)
[2021-06-10 03:48] LABS: CALCIUM 8.8 mg/dL (8.5-10.1); CREATININE 2.9 mg/dL (0.6-1.3); MAGNESIUM 2.7 mg/dL (1.8-2.4); POTASSIUM 3.7 mmol/L (3.5-5.1); TOTAL BILIRUBIN 0.6 mg/dL (<0.1-1.0); TOTAL PROTEIN 6.3 g/dL (6.4-8.2)
[2021-06-10 04:06] LABS: ALBUMIN 3.1 g/dL (3.4-5.0); CALCIUM 8.5 mg/dL (8.5-10.1); CREATININE 2.8 mg/dL (0.6-1.3); PHOSPHORUS* 5.9 mg/dL (2.5-4.9); POTASSIUM 3.7 mmol/L (3.5-5.1)
[2021-06-10 06:48] LABS: ABSOLUTE BASOPHILS 0.3 thou/uL (0.0-0.2); ABSOLUTE LYMPHOCYTES 0.2 thou/uL (0.8-5.3); ABSOLUTE MONOCYTES 0.5 thou/uL (0.0-1.2); ABSOLUTE NEUTROPHILS 10.4 thou/uL (1.6-8.1); ANISOCYTOSIS 2+; HYPOCHROMASIA 1+; LARGE PLATELETS MANY; PLATELET ESTIMATE DECREASED
[2021-06-10 08:40] LABS: BE 2.9 mmol/L (-2 to +3); PCO2 33.9 mmHg (35.0-45.0); pH 7.499 (7.340-7.450)
[2021-06-10 15:15] LABS: BE 1.4 mmol/L (-2 to +3); PCO2 38.7 mmHg (35.0-45.0); PO2 80.7 mmHg (75.0-100.0); pH 7.437 (7.340-7.450)
--- NOTE | 2021-06-10 19:29 | NUR ---
I ASSUMED CARE OF THE PATIENT AT 0700. HE WAS 1:1 CARE ALL DAY TODAY. ISOLATION WAS MAINTAINED. HE WAS REPOSITIONED EVERY 2 HOURS AND IS ON A BARIATRIC BED. DRESSING ON DIALYSIS CATH WAS CHANGED TODAY. BED IS IN THE LOW LOCKED POSITION AND RESTRAINTS WERE NOT NEEDED, PATIENT IS SEDATED AND INTUBATED. HE IS ON THE MONITOR AND VITALS ARE WNL. BLOOD GLUCOSE IS MONITORED HOURLY AND IS CHARTED ON PAPER IN THE CHART. NIMBEX WAS D/C'D AND PROPOFOL WAS STARTED WITH LEVO INSTEAD. DR CORTES WOULD LIKE THE PATIENT TO STAY ON CRRT UNTIL TOMORROW. CARTRIDGE WAS CHANGED OUT AT 1030. CHEST XRAY WAS COMPLETED. HOURLY I&O'S WERE CHARTED. I SPOKE WITH ON THE PHONE WITH AN UPDATE AND SHE SAID SHE WOULD BE HERE TO VISIT BETWEEN 3 AND 4, BUT SHE NEVER SHOWED UP. SHE STATES THAT SHE HAS SPECIAL PERMISSION TO VISIT. RT MANAGED VENT SETTINGS. WILL CONTINUE TO MONITOR. CRRT CHARTING IS ALSO DONE ON PAPER. WILL CONTINUE TO MONITOR.
[2021-06-11] VITALS (67 sets, daily range): BP systolic 65–226; BP diastolic 31–73
[2021-06-11 05:16] LABS: ALBUMIN 3.3 g/dL (3.4-5.0); CALCIUM 8.9 mg/dL (8.5-10.1); CREATININE 3.4 mg/dL (0.6-1.3); MAGNESIUM 2.8 mg/dL (1.8-2.4); PHOSPHORUS* 7.1 mg/dL (2.5-4.9)
[2021-06-11 05:21] LABS: ALBUMIN 3.3 g/dL (3.4-5.0); CALCIUM 9.1 mg/dL (8.5-10.1); CREATININE 3.5 mg/dL (0.6-1.3); POTASSIUM 3.9 mmol/L (3.5-5.1); TOTAL BILIRUBIN 0.8 mg/dL (<0.1-1.0); TOTAL PROTEIN 6.9 g/dL (6.4-8.2)
[2021-06-11 06:43] LABS: BASOPHILS 1.4 %; HEMATOCRIT 38.4 % (42.0-52.0); HEMOGLOBIN 11.8 gm/dL (14.0-18.0); LYMPHOCYTES 1.5 %; MCH 24.1 pg (26.0-34.0); MCHC 30.7 g/dL (28.0-37.0); MCV 78.5 fL (80.0-100.0); MONOCYTES 4.3 %; MPV 11.7 fl. (7.2-11.1); NUCLEATED RBCS 0 /100WBC; POLYS 92.8 %; RBC 4.89 mil/uL (4.50-6.00); RDW-CV 22.3 % (10.5-14.5)
[2021-06-11 07:30] LABS: ABSOLUTE BASOPHILS 0.4 thou/uL (0.0-0.2); ABSOLUTE LYMPHOCYTES 0.4 thou/uL (0.8-5.3); ABSOLUTE MONOCYTES 1.2 thou/uL (0.0-1.2); ABSOLUTE NEUTROPHILS 25.2 thou/uL (1.6-8.1); PLATELET COUNT* 236 thou/uL (150-400); WBC 27.2 thou/uL (4.0-11.0)
[2021-06-11 08:36] LABS: BE 0.8 mmol/L (-2 to +3); PCO2 40.1 mmHg (35.0-45.0); PO2 84.8 mmHg (75.0-100.0); pH 7.418 (7.340-7.450)
[2021-06-11 11:58] LABS: HEMATOCRIT 38.2 % (42.0-52.0); HEMOGLOBIN 11.8 gm/dL (14.0-18.0); MCH 24.1 pg (26.0-34.0); MCV 77.9 fL (80.0-100.0); MPV 10.5 fl. (7.2-11.1); RBC 4.9 mil/uL (4.50-6.00); RDW-CV 22.6 % (10.5-14.5)
[2021-06-11 12:12] LABS: CALCIUM 8.9 mg/dL (8.5-10.1); CREATININE 2.9 mg/dL (0.6-1.3); MAGNESIUM 2.5 mg/dL (1.8-2.4); PHOSPHORUS* 6.2 mg/dL (2.5-4.9); POTASSIUM 3.9 mmol/L (3.5-5.1)
--- NOTE | 2021-06-11 14:28 | NUR ---
ICU rounds: Pt remains intubated and sedated Isolation: Currently in Covid Isolation Intubated: 05/31/21 Code Status: DNR Oxygen Needs: 70%Fio2 10 of Peep Living Situation: Lives with - Kira DPOA: None found D/c Plan: Unknown at this time - likely will need further rehabiliation. Pt is making slow improvement with being on CRRT. CM to continue to follow for discharge planning.
[2021-06-11 14:46] LABS: BE -5.4 mmol/L (-2 to +3); PCO2 35.5 mmHg (35.0-45.0); PO2 72.6 mmHg (75.0-100.0); pH 7.356 (7.340-7.450)
--- NOTE | 2021-06-11 18:35 | NUR ---
patient continues on CRRT - currently on SCUFF. tolerating. at net negative 200mls/hr. Transitioned from CVVHD to SCUFF d/t bag shortages. Continues on Norepi to maintaine BP. Removing net negative 200ml/hr per nephrology. Continues on inusulin gtt per hyperglycemic protocol. low uop from mari. Fentanyl decreased to 100mg/hr per Dr. Sims no other sedation titrated down per provider. RASS -5. MTN notified of low GCS - only a candidate if nuero status declines. currently has cough, pupil response, and corneal. Vent Fio2 weaned down to 70%. will continue to monitor.
--- NOTE | 2021-06-11 23:18 | NUR ---
I ASSUMED CARE OF THE PATIENT AT 2030. BED IS IN THE LOW LOCKED POSTION AND CALL LIGHT IS IN REACH. PATIENT NEEDS ARE MET AND ISOLATION IS MAINTAINED. 1:1 CARE IS GIVEN. CRRT SCUF IS MANAGED AND FLOW SHEETS ARE KEPT CURRENT. WILL CONTINUE TO MONITOR. ORAL CARE IS DONE, HE IS REPOSITIONED, DRIPS ARE MANAGED. REPORT GIVEN TO SHONA UREÑA.
--- NOTE | 2021-06-11 23:25 | NUR ---
MARLENE WAS CONTACTED AND UPDATED ON THE PATIENT'S STATUS AT 2144. SHE WAS GREATFUL FOR THE CARE TIANNA IS RECEIVED AND HOPEFUL. SHE WILL BRING A COPY OF HIS VACCINE CARD TOMORROW FOR THE CHART.
[2021-06-12] VITALS (70 sets, daily range): BP systolic 101–151; BP diastolic 37–57
--- NOTE | 2021-06-12 00:20 | NUR ---
ATTEMPTED TO TURN TO LEFT SIDE WITH WEDGES. PATIENT DESATED TO 82% DESPITE BEING PLACED ON 100% JUST FOR THE TURN. BP DROPPED INTO THE 60'S DESPITE ART LINE BEING LEVEL. MULTIPLE PVCS RESULTING IN SHORT RUNS OF BIGEMINY AND TRIGEMINY. RETURNED TO SEMI FOWLERS.
[2021-06-12 01:20] LABS: HEMOGLOBIN 12.4 gm/dL (14.0-18.0); MCHC 30.2 g/dL (28.0-37.0)
[2021-06-12 01:21] LABS: MCV 79.2 fL (80.0-100.0); MPV 10.8 fl. (7.2-11.1); NUCLEATED RBCS 0 /100WBC; PLATELET COUNT* 217 thou/uL (150-400); RBC 5.18 mil/uL (4.50-6.00); RDW-CV 22.2 % (10.5-14.5)
[2021-06-12 01:34] LABS: ALBUMIN 3.4 g/dL (3.4-5.0); CALCIUM 9.2 mg/dL (8.5-10.1); CREATININE 3.2 mg/dL (0.6-1.3); MAGNESIUM 2.7 mg/dL (1.8-2.4); PHOSPHORUS* 8.2 mg/dL (2.5-4.9); POTASSIUM 4.4 mmol/L (3.5-5.1); TOTAL BILIRUBIN 0.7 mg/dL (<0.1-1.0); TOTAL PROTEIN 7.6 g/dL (6.4-8.2)
[2021-06-12 01:57] LABS: ABSOLUTE LYMPHOCYTES 1.5 thou/uL (0.8-5.3); ABSOLUTE MONOCYTES 1.2 thou/uL (0.0-1.2); ABSOLUTE NEUTROPHILS 27.3 thou/uL (1.6-8.1); PLATELET ESTIMATE ADEQUATE
--- NOTE | 2021-06-12 02:00 | NUR ---
REPORT HANDED OFF TO JOHANNY
[2021-06-12 02:01] LABS: GIANT PLATELETS OCCASIONAL; LARGE PLATELETS RARE
[2021-06-12 02:03] LABS: ANISOCYTOSIS 2+; POLYCHROMASIA 1+
[2021-06-12 06:12] LABS: HEMATOCRIT 41.2 % (42.0-52.0); HEMOGLOBIN 12.3 gm/dL (14.0-18.0); MCHC 29.8 g/dL (28.0-37.0); MCV 80.6 fL (80.0-100.0); MPV 11.1 fl. (7.2-11.1); RBC 5.11 mil/uL (4.50-6.00); RDW-CV 22.8 % (10.5-14.5); WBC 32.6 thou/uL (4.0-11.0)
[2021-06-12 06:28] LABS: CALCIUM 9.5 mg/dL (8.5-10.1); CREATININE 3.6 mg/dL (0.6-1.3); MAGNESIUM 2.9 mg/dL (1.8-2.4); POTASSIUM 5.3 mmol/L (3.5-5.1)
[2021-06-12 07:01] LABS: PHOSPHORUS* 10.2 mg/dL (2.5-4.9)
[2021-06-12 08:18] LABS: BE -8.8 mmol/L (-2 to +3); PO2 74.6 mmHg (75.0-100.0)
[2021-06-12 08:24] LABS: pH 7.169 (7.340-7.450)
[2021-06-12 08:25] LABS: PCO2 56.8 mmHg (35.0-45.0)
[2021-06-12 12:24] LABS: HEMATOCRIT 41.8 % (42.0-52.0); HEMOGLOBIN 12.4 gm/dL (14.0-18.0); MCH 23.8 pg (26.0-34.0); MCHC 29.6 g/dL (28.0-37.0); MCV 80.4 fL (80.0-100.0); MPV 11.3 fl. (7.2-11.1); PO2 66.7 mmHg (75.0-100.0); RBC 5.2 mil/uL (4.50-6.00); RDW-CV 22.1 % (10.5-14.5); WBC 33.3 thou/uL (4.0-11.0)
[2021-06-12 12:26] LABS: PCO2 51.7 mmHg (35.0-45.0); pH 7.227 (7.340-7.450)
[2021-06-12 12:42] LABS: CALCIUM 9.3 mg/dL (8.5-10.1); MAGNESIUM 2.7 mg/dL (1.8-2.4); PHOSPHORUS* 8.3 mg/dL (2.5-4.9); POTASSIUM 4.6 mmol/L (3.5-5.1)
[2021-06-12 17:04] LABS: BE -6.9 mmol/L (-2 to +3); PCO2 44.8 mmHg (35.0-45.0); PO2 73.7 mmHg (75.0-100.0)
[2021-06-12 17:12] LABS: pH 7.266 (7.340-7.450)
[2021-06-12 18:11] LABS: HEMATOCRIT 42.1 % (42.0-52.0); HEMOGLOBIN 12.3 gm/dL (14.0-18.0); MCH 24.1 pg (26.0-34.0); MCHC 29.2 g/dL (28.0-37.0); MCV 82.7 fL (80.0-100.0); MPV 10.9 fl. (7.2-11.1); RBC 5.09 mil/uL (4.50-6.00); RDW-CV 22.2 % (10.5-14.5); WBC 31.8 thou/uL (4.0-11.0)
--- NOTE | 2021-06-12 18:12 | NUR ---
PT CONTINUES ON CRRT - RUNNING CVVHD PER NEPHROLOGY. PULLING NET NEGATIVE 200ML/HR AND TOLERATING. PATIENT CONTINUES TO BE AT RASS -[address] CORTES. SEDATION UNCHANGED PER ORDERS PT IS SYNCHRONOUS WITH THE VENT. CONTINUES ON TPN AND INSULIN GTT. INSULIN ORDERS CHANGED PER SOPHIA NEW ORDERS IN CHART. GLUCOSE GOAL NOW 180 FROM 130. TUBE FEEDS STARTED AT 20MLS HR - WILL FOLLOW RESIDUALS. BILL CONTNIUES TO MAINTANE MAP GOAL. WILL CONTINUE TO MONITOR.
[2021-06-12 18:40] LABS: CALCIUM 9.3 mg/dL (8.5-10.1); CREATININE 2.7 mg/dL (0.6-1.3); MAGNESIUM 2.4 mg/dL (1.8-2.4); PHOSPHORUS* 6.5 mg/dL (2.5-4.9); POTASSIUM 4.9 mmol/L (3.5-5.1)
[2021-06-13] VITALS (77 sets, daily range): BP systolic 81–182; BP diastolic 36–81
[2021-06-13 01:02] LABS: HEMATOCRIT 42.1 % (42.0-52.0); HEMOGLOBIN 12.7 gm/dL (14.0-18.0); MCH 24.2 pg (26.0-34.0); MCHC 30.1 g/dL (28.0-37.0); MCV 80.6 fL (80.0-100.0); MPV 10.8 fl. (7.2-11.1); RBC 5.22 mil/uL (4.50-6.00); RDW-CV 22.2 % (10.5-14.5); WBC 33.7 thou/uL (4.0-11.0)
[2021-06-13 01:12] LABS: ALBUMIN 3.4 g/dL (3.4-5.0); CALCIUM 9.1 mg/dL (8.5-10.1); CREATININE 2.3 mg/dL (0.6-1.3); MAGNESIUM 2.3 mg/dL (1.8-2.4); PHOSPHORUS* 5.7 mg/dL (2.5-4.9); POTASSIUM 4.8 mmol/L (3.5-5.1); TOTAL BILIRUBIN 0.8 mg/dL (<0.1-1.0); TOTAL PROTEIN 7.4 g/dL (6.4-8.2)
[2021-06-13 06:23] LABS: ABSOLUTE BASOPHILS 0.2 thou/uL (0.0-0.2); ABSOLUTE LYMPHOCYTES 0.5 thou/uL (0.8-5.3); ABSOLUTE MONOCYTES 2.7 thou/uL (0.0-1.2); ABSOLUTE NEUTROPHILS 30.8 thou/uL (1.6-8.1); BASOPHILS 0.5 %; HEMATOCRIT 42.4 % (42.0-52.0); HEMOGLOBIN 12.9 gm/dL (14.0-18.0); LYMPHOCYTES 1.4 %; MCH 24.2 pg (26.0-34.0); MCHC 30.5 g/dL (28.0-37.0); MCV 79.4 fL (80.0-100.0); MPV 10.4 fl. (7.2-11.1); NUCLEATED RBCS 0 /100WBC; PLATELET COUNT* 282 thou/uL (150-400); POLYS 90.1 %; RBC 5.34 mil/uL (4.50-6.00); RDW-CV 21.7 % (10.5-14.5); WBC 34.2 thou/uL (4.0-11.0)
[2021-06-13 06:27] LABS: CALCIUM 9.4 mg/dL (8.5-10.1); CREATININE 2.2 mg/dL (0.6-1.3); MAGNESIUM 2.1 mg/dL (1.8-2.4); POTASSIUM 4.7 mmol/L (3.5-5.1)
[2021-06-13 06:42] LABS: PHOSPHORUS* 5.3 mg/dL (2.5-4.9)
[2021-06-13 08:30] LABS: BE -1.8 mmol/L (-2 to +3); PCO2 44.8 mmHg (35.0-45.0); PO2 76.2 mmHg (75.0-100.0); pH 7.347 (7.340-7.450)
[2021-06-13 12:26] LABS: HEMATOCRIT 38.2 % (42.0-52.0); HEMOGLOBIN 11.6 gm/dL (14.0-18.0); MCH 24.1 pg (26.0-34.0); MCHC 30.4 g/dL (28.0-37.0); MCV 79.4 fL (80.0-100.0); MPV 10.5 fl. (7.2-11.1); RBC 4.82 mil/uL (4.50-6.00); RDW-CV 22.3 % (10.5-14.5); WBC 28.7 thou/uL (4.0-11.0)
[2021-06-13 12:40] LABS: CALCIUM 8.8 mg/dL (8.5-10.1); CREATININE 2.5 mg/dL (0.6-1.3); MAGNESIUM 2.2 mg/dL (1.8-2.4); PHOSPHORUS* 5.9 mg/dL (2.5-4.9); POTASSIUM 4.8 mmol/L (3.5-5.1)
--- NOTE | 2021-06-13 13:47 | NUR ---
ICU Rounds: Isolation: Still in Covid isolation Intubated: 05/31/21 Oxygen Needs: 65%Fio2 10 of Peep Living Situation: Lives with - Kira Code Status: Full Code DPOA: None D/C Plan : LTACH Pt was on CRRT (but clotted this am). Professor Of Biochemistry is attempting to wean pt off the vent but if unable to do so - will likely recommend Trache and Peg. Made a referral to [facility] as pt does not have DPOA paperwork. [facility] guidelines - you must have DPOA or able to provide consent. If pt's alertness changes will make a referral to [facility]. [facility] will not accept pt's on drips. CM to continue to follow for discharge planning.
[2021-06-13 18:04] LABS: RDW-CV 22.6 % (10.5-14.5)
[2021-06-13 18:06] LABS: HEMATOCRIT 39.4 % (42.0-52.0); HEMOGLOBIN 12.3 gm/dL (14.0-18.0); MCH 24.6 pg (26.0-34.0); MCHC 31.2 g/dL (28.0-37.0); MCV 78.7 fL (80.0-100.0); MPV 10.5 fl. (7.2-11.1); RBC 5.01 mil/uL (4.50-6.00); WBC 30.4 thou/uL (4.0-11.0)
[2021-06-13 18:23] LABS: CALCIUM 9.1 mg/dL (8.5-10.1); CREATININE 1.8 mg/dL (0.6-1.3); MAGNESIUM 2.2 mg/dL (1.8-2.4); PHOSPHORUS* 4.8 mg/dL (2.5-4.9); POTASSIUM 4.4 mmol/L (3.5-5.1)
[2021-06-13 20:31] LABS: BE -0.9 mmol/L (-2 to +3); PO2 96.9 mmHg (75.0-100.0); pH 7.322 (7.340-7.450)
[2021-06-14] VITALS (86 sets, daily range): BP systolic 89–174; BP diastolic 47–68
[2021-06-14 05:33] LABS: ABSOLUTE BASOPHILS 0.1 thou/uL (0.0-0.2); ABSOLUTE LYMPHOCYTES 0.5 thou/uL (0.8-5.3); ABSOLUTE MONOCYTES 2.9 thou/uL (0.0-1.2); BASOPHILS 0.4 %; HEMATOCRIT 38.2 % (42.0-52.0); HEMOGLOBIN 11.4 gm/dL (14.0-18.0); LYMPHOCYTES 1.6 %; MCH 24.1 pg (26.0-34.0); MCHC 29.8 g/dL (28.0-37.0); MONOCYTES 10.3 %; MPV 10.5 fl. (7.2-11.1); NUCLEATED RBCS 0 /100WBC; PLATELET COUNT* 207 thou/uL (150-400); POLYS 87.7 %; RBC 4.72 mil/uL (4.50-6.00); RDW-CV 23.8 % (10.5-14.5); WBC 28.5 thou/uL (4.0-11.0)
[2021-06-14 05:50] LABS: PHOSPHORUS* 6.8 mg/dL (2.5-4.9)
[2021-06-14 05:58] LABS: ALBUMIN 3.3 g/dL (3.4-5.0); CALCIUM 9.2 mg/dL (8.5-10.1); MAGNESIUM 2.4 mg/dL (1.8-2.4); POTASSIUM 5.3 mmol/L (3.5-5.1); TOTAL PROTEIN 6.7 g/dL (6.4-8.2)
[2021-06-14 06:05] LABS: CREATININE 2.8 mg/dL (0.6-1.3)
[2021-06-14 13:01] LABS: BE -6.6 mmol/L (-2 to +3); PCO2 47.4 mmHg (35.0-45.0); PO2 72.6 mmHg (75.0-100.0)
[2021-06-14 13:08] LABS: pH 7.254 (7.340-7.450)
--- NOTE | 2021-06-14 13:59 | NUR ---
ICU Rounds: Remains Intubated and Sedated Isolation: Now out of Covid isolation Intubated: 05/31/21 Oxygen needs: 80%Fio2/ 10 of Peep Living Situation: Lives with Kira DPOA: None D/C Plan: Referral made to [facility] Doctor is reporting today that pt has become hypotensive, running a fever and do not feel they will be able to extubate him now and likely will need Trache and Peg Tube placement soon. Unable to tolerate hemodialysis and they are recommending CRRT. Esmer from [facility] confirms she received referral. CM to continue to follow for discharge planning.
[2021-06-14 16:25] LABS: URINE BLOOD 3+ (Negative); URINE CLARITY CLOUDY; URINE COLOR YELLOW; URINE GLUCOSE-RANDOM NEGATIVE (Negative); URINE KETONES TRACE (Negative); URINE NITRITE-REFLEX NEGATIVE (Negative); URINE PROTEIN 1+ (Negative); URINE SPECIFIC GRAVITY >= 1.030 (1.005-1.030); URINE UROBILINOGEN 0.2 E.U./dl (0.2-1.0)
[2021-06-14 16:32] LABS: ICTOTEST (BILI CONFIRMATORY) Negative (Negative); URINE BILIRUBIN 1+ (Negative); URINE LEUKOCYTES-REFLEX 2+ (Negative)
[2021-06-14 16:46] LABS: BACTERIA-REFLEX 1-9 Few /HPF (None Seen); MUCUS None Seen strn/LPF (None Seen); SQUAMOUS 0-3 Few /LPF (0-3); YEAST-REFLEX Present (None Seen)
[2021-06-14 16:47] LABS: CRYSTALS None Seen /LPF (None Seen); HYALINE CASTS 0-3 Few /LPF (None Seen); URINE WBC-REFLEX >25 Many /HPF (0-5); WBC CLUMPS Few (None Seen)
[2021-06-14 16:48] LABS: URINE RBC 3-10 Few /HPF (0-2)
[2021-06-15] VITALS (68 sets, daily range): BP systolic 72–159; BP diastolic 32–66
[2021-06-15 03:12] LABS: ABSOLUTE BASOPHILS 0.2 thou/uL (0.0-0.2); ABSOLUTE LYMPHOCYTES 0.5 thou/uL (0.8-5.3); ABSOLUTE MONOCYTES 3.1 thou/uL (0.0-1.2); BASOPHILS 0.6 %; HEMATOCRIT 36.4 % (42.0-52.0); HEMOGLOBIN 11.1 gm/dL (14.0-18.0); LYMPHOCYTES 1.4 %; MCH 24.4 pg (26.0-34.0); MCHC 30.5 g/dL (28.0-37.0); MCV 79.8 fL (80.0-100.0); MONOCYTES 8.9 %; MPV 10.6 fl. (7.2-11.1); NUCLEATED RBCS 0 /100WBC; PLATELET COUNT* 149 thou/uL (150-400); POLYS 89.1 %; RBC 4.56 mil/uL (4.50-6.00); RDW-CV 23.3 % (10.5-14.5); WBC 34.8 thou/uL (4.0-11.0)
[2021-06-15 03:27] LABS: PHOSPHORUS* 4.6 mg/dL (2.5-4.9)
[2021-06-15 05:13] LABS: CALCIUM 9.2 mg/dL (8.5-10.1); TOTAL PROTEIN 6.3 g/dL (6.4-8.2)
[2021-06-15 05:50] LABS: MAGNESIUM 2.1 mg/dL (1.8-2.4)
[2021-06-15 08:17] LABS: PCO2 34.6 mmHg (35.0-45.0); PO2 67.3 mmHg (75.0-100.0); pH 7.386 (7.340-7.450)
[2021-06-15 09:34] LABS: HEMATOCRIT 36.7 % (42.0-52.0); HEMOGLOBIN 11.1 gm/dL (14.0-18.0); MCH 24.3 pg (26.0-34.0); MCHC 30.3 g/dL (28.0-37.0); MCV 80.1 fL (80.0-100.0); RBC 4.58 mil/uL (4.50-6.00); RDW-CV 22.8 % (10.5-14.5); WBC 35.9 thou/uL (4.0-11.0)
[2021-06-15 09:56] LABS: CREATININE 2.3 mg/dL (0.6-1.3); MAGNESIUM 2.1 mg/dL (1.8-2.4); PHOSPHORUS* 5.7 mg/dL (2.5-4.9); POTASSIUM 4.4 mmol/L (3.5-5.1)
[2021-06-15 15:27] LABS: HEMATOCRIT 36.1 % (42.0-52.0); MCH 24.6 pg (26.0-34.0); MCHC 30.5 g/dL (28.0-37.0); MCV 80.5 fL (80.0-100.0); MPV 9.9 fl. (7.2-11.1); RBC 4.48 mil/uL (4.50-6.00); RDW-CV 22.4 % (10.5-14.5); WBC 37.4 thou/uL (4.0-11.0)
[2021-06-15 15:39] LABS: CALCIUM 8.7 mg/dL (8.5-10.1); CREATININE 1.8 mg/dL (0.6-1.3); MAGNESIUM 2.1 mg/dL (1.8-2.4); PHOSPHORUS* 4.5 mg/dL (2.5-4.9); POTASSIUM 4.1 mmol/L (3.5-5.1)
--- NOTE | 2021-06-15 16:34 | NUR ---
ICU Rounds: Remains Intubated and Sedated Intubated: 05/31/21 Code Status: DNR Oxygen Needs: 80%Fio2 Peep of 10 Living Situation: Lives with - Kira DPOA: None D/C Plan: [facility] due to pt not having a DPOA Sent a referral to [facility]. Attempted to meet with today - however she was not at hospital today and no answer at phone. Will follow up with on Friday to discuss [facility] as a discharge plan. Potentially pt could have a Trache and Peg placed early next week. Pt is responding to CRRT. CM to continue to follow for discharge planning.
--- NOTE | 2021-06-15 19:02 | NUR ---
PT WAS RESTARTED ON CRRT AT ABOUT 1030 TODAY. HE HAS TOLERATED IT WELL. LEVO HAS BEEN ABLE TO BE TURNED DOWN TO 0.044 FROM 0.072. FIO2 ABLE TO BE TURNED DOWN TO 70% ON THE VENT. JACQUELINE UPDATED. PER DR. MEIER, IF CRRT CLOTS OFF AFTER MIDNIGHT, IT IS NOT TO BE RESTARTED. HE ALSO SAID TO KEEP POTASSIUM ABOVE 4.
--- NOTE | 2021-06-15 20:20 | NUR ---
2000 BG 63. Stopped insuline gtt and administered D10 per order.
--- NOTE | 2021-06-15 21:33 | NUR ---
Per Dr. Nicholson - keep insulin gtt of and start low dose SS insluin Q 4.
[2021-06-16] VITALS (50 sets, daily range): BP systolic 86–157; BP diastolic 36–61
--- NOTE | 2021-06-16 00:14 | NUR ---
Collected Q 6 labs at 2100 and sent to lab. At 2300 called lab d/t no results. Per lab they could not see the Q 6 lab orders. Reordered labs and notified lab.
[2021-06-16 00:18] LABS: HEMATOCRIT 36.7 % (42.0-52.0); HEMOGLOBIN 11.4 gm/dL (14.0-18.0); MCH 24.6 pg (26.0-34.0); MCHC 30.9 g/dL (28.0-37.0); MCV 79.5 fL (80.0-100.0); MPV 11.1 fl. (7.2-11.1); RBC 4.62 mil/uL (4.50-6.00); WBC 32.8 thou/uL (4.0-11.0)
[2021-06-16 00:24] LABS: CREATININE 1.6 mg/dL (0.6-1.3); MAGNESIUM 1.9 mg/dL (1.8-2.4); PHOSPHORUS* 4.1 mg/dL (2.5-4.9); POTASSIUM 4.3 mmol/L (3.5-5.1)
--- NOTE | 2021-06-16 01:02 | NUR ---
Requested update from lab regarding labs sent at 2100. Per lab, will follow up on status.
[2021-06-16 04:59] LABS: HEMATOCRIT 36.6 % (42.0-52.0); HEMOGLOBIN 11.3 gm/dL (14.0-18.0); MCH 24.5 pg (26.0-34.0); MCHC 30.9 g/dL (28.0-37.0); MCV 79.3 fL (80.0-100.0); MPV 10.8 fl. (7.2-11.1); RBC 4.61 mil/uL (4.50-6.00); RDW-CV 23.6 % (10.5-14.5)
--- NOTE | 2021-06-16 05:40 | NUR ---
VS remain stable over night. Remains intubated and sedated.CRRT without complications during shift. Levo titrated to maintain MAP > 65, now at 0.039. Versed at 15. Fent at 150. updated on patient status.
[2021-06-16 07:01] LABS: CALCIUM 9.3 mg/dL (8.5-10.1); CREATININE 1.3 mg/dL (0.6-1.3); MAGNESIUM 1.9 mg/dL (1.8-2.4); PHOSPHORUS* 4.1 mg/dL (2.5-4.9); POTASSIUM 4.2 mmol/L (3.5-5.1)
[2021-06-16 11:05] LABS: HEMATOCRIT 37.1 % (42.0-52.0); HEMOGLOBIN 11.3 gm/dL (14.0-18.0); MCH 24.6 pg (26.0-34.0); MCHC 30.5 g/dL (28.0-37.0); MCV 80.6 fL (80.0-100.0); MPV 9.1 fl. (7.2-11.1); RBC 4.6 mil/uL (4.50-6.00); RDW-CV 24.3 % (10.5-14.5); WBC 25.5 thou/uL (4.0-11.0)
[2021-06-16 11:12] LABS: CALCIUM 9.2 mg/dL (8.5-10.1); CREATININE 1.4 mg/dL (0.6-1.3); PHOSPHORUS* 4.2 mg/dL (2.5-4.9); POTASSIUM 4.1 mmol/L (3.5-5.1)
[2021-06-16 15:31] LABS: CALCIUM 9.2 mg/dL (8.5-10.1); CREATININE 1.5 mg/dL (0.6-1.3); MAGNESIUM 2.1 mg/dL (1.8-2.4); PHOSPHORUS* 4.5 mg/dL (2.5-4.9); POTASSIUM 4.4 mmol/L (3.5-5.1)
[2021-06-16 15:42] LABS: HEMATOCRIT 37.3 % (42.0-52.0); HEMOGLOBIN 11.5 gm/dL (14.0-18.0); MCH 24.6 pg (26.0-34.0); MCHC 30.7 g/dL (28.0-37.0); MCV 80.1 fL (80.0-100.0); MPV 9.8 fl. (7.2-11.1); RBC 4.66 mil/uL (4.50-6.00); RDW-CV 23.9 % (10.5-14.5); WBC 25.6 thou/uL (4.0-11.0)
[2021-06-16 21:56] LABS: HEMATOCRIT 36.8 % (42.0-52.0); HEMOGLOBIN 11.3 gm/dL (14.0-18.0); MCH 24.6 pg (26.0-34.0); MCHC 30.7 g/dL (28.0-37.0); MCV 80.3 fL (80.0-100.0); MPV 9.1 fl. (7.2-11.1); RBC 4.59 mil/uL (4.50-6.00); RDW-CV 23.8 % (10.5-14.5); WBC 25.1 thou/uL (4.0-11.0)
[2021-06-16 21:59] LABS: CALCIUM 9.2 mg/dL (8.5-10.1); CREATININE 1.2 mg/dL (0.6-1.3); PHOSPHORUS* 3.2 mg/dL (2.5-4.9); POTASSIUM 4.2 mmol/L (3.5-5.1)
[2021-06-17] VITALS (54 sets, daily range): BP systolic 71–209; BP diastolic 33–191
[2021-06-17 03:23] LABS: HEMATOCRIT 37.7 % (42.0-52.0); HEMOGLOBIN 11.6 gm/dL (14.0-18.0); MCH 24.5 pg (26.0-34.0); MCHC 30.9 g/dL (28.0-37.0); MCV 79.4 fL (80.0-100.0); MPV 9.6 fl. (7.2-11.1); RBC 4.75 mil/uL (4.50-6.00); RDW-CV 23.5 % (10.5-14.5); WBC 25.5 thou/uL (4.0-11.0)
[2021-06-17 03:44] LABS: CALCIUM 9.6 mg/dL (8.5-10.1); CREATININE 1.1 mg/dL (0.6-1.3); MAGNESIUM 1.9 mg/dL (1.8-2.4); PHOSPHORUS* 2.9 mg/dL (2.5-4.9); POTASSIUM 4.2 mmol/L (3.5-5.1)
[2021-06-17 09:29] LABS: HEMATOCRIT 38.7 % (42.0-52.0); HEMOGLOBIN 11.8 gm/dL (14.0-18.0); MCH 24.4 pg (26.0-34.0); MCHC 30.4 g/dL (28.0-37.0); MCV 80.3 fL (80.0-100.0); RBC 4.82 mil/uL (4.50-6.00); RDW-CV 24.4 % (10.5-14.5)
[2021-06-17 09:33] LABS: BE -1.1 mmol/L (-2 to +3); PCO2 29.5 mmHg (35.0-45.0); PO2 87.7 mmHg (75.0-100.0); pH 7.479 (7.340-7.450)
[2021-06-17 09:40] LABS: CALCIUM 9.3 mg/dL (8.5-10.1); CREATININE 1.1 mg/dL (0.6-1.3); MAGNESIUM 1.9 mg/dL (1.8-2.4); PHOSPHORUS* 2.5 mg/dL (2.5-4.9); POTASSIUM 4.1 mmol/L (3.5-5.1)
[2021-06-17 15:06] LABS: HEMOGLOBIN 11.7 gm/dL (14.0-18.0); MCH 24.9 pg (26.0-34.0); MCHC 30.9 g/dL (28.0-37.0); MCV 80.5 fL (80.0-100.0); MPV 11.4 fl. (7.2-11.1); RBC 4.72 mil/uL (4.50-6.00); RDW-CV 24.9 % (10.5-14.5); WBC 21.4 thou/uL (4.0-11.0)
[2021-06-17 15:07] LABS: BE -1.1 mmol/L (-2 to +3); PCO2 43.7 mmHg (35.0-45.0); pH 7.365 (7.340-7.450)
[2021-06-17 15:10] LABS: PO2 57.9 mmHg (75.0-100.0)
[2021-06-17 15:17] LABS: CALCIUM 9.2 mg/dL (8.5-10.1); PHOSPHORUS* 2.7 mg/dL (2.5-4.9); POTASSIUM 4.1 mmol/L (3.5-5.1)
--- NOTE | 2021-06-17 18:49 | NUR ---
PT IMPROVING TODAY. VENT SETTINGS WERE TURNED DOWN TO PC 30/20/+8/40%. ABG AFTER THESE CHANGES LOOKED GOOD AND PT WAS TOLERATING THEM WELL. PC TURNED DOWN TO 26. AFTER A COUPLE OF HOURS, PT AGAIN WAS SATING WELL AND TOLERATING THE VENT CHANGES. PC WAS AGAIN TURNED DOWN TO 20. PT WAS DE-SATING A LITTLE BIT, AND ABG PO2 AND O2 SAT WERE CRITICAL AND REPORTED TO DR. CAMPA. FIO2 WAS TURNED BACK UP TO 50%, BUT WAS ABLE TO BE TURNED BACK DOWN TO 40% AFTER A FEW HOURS. VERSED WAS WEANED DOWN TO 5 MG/HR AND FENTANYL WAS WEANED DOWN TO 75 MCG/HR. PT DOES BREATH OVER THE VENT OCCASIONALLY NOW. LEVO WAS WEANED DOWN THROUGH THE SHIFT AND WAS TURNED OFF AT 1840. PT WAS BATHED AND LINENS CHANGED. WAS UPDATED. CRRT WAS TURNED OFF AT 1800 PER NEPHRO AND THE PLAN IS HAVE HD TOMORROW.
[2021-06-18] VITALS (50 sets, daily range): BP systolic 88–192; BP diastolic 38–71
[2021-06-18 04:41] LABS: HEMOGLOBIN 11.5 gm/dL (14.0-18.0); MCH 24.4 pg (26.0-34.0); MCHC 30.3 g/dL (28.0-37.0); MCV 80.4 fL (80.0-100.0); RBC 4.73 mil/uL (4.50-6.00); RDW-CV 24.2 % (10.5-14.5); WBC 30.6 thou/uL (4.0-11.0)
[2021-06-18 04:54] LABS: CALCIUM 9.4 mg/dL (8.5-10.1); CREATININE 1.5 mg/dL (0.6-1.3); MAGNESIUM 2.2 mg/dL (1.8-2.4); PHOSPHORUS* 3.7 mg/dL (2.5-4.9)
[2021-06-18 08:21] LABS: BE -1.6 mmol/L (-2 to +3); PCO2 41.3 mmHg (35.0-45.0); pH 7.374 (7.340-7.450)
[2021-06-18 09:59] LABS: CALCIUM 9.4 mg/dL (8.5-10.1); CREATININE 1.7 mg/dL (0.6-1.3); MAGNESIUM 2.3 mg/dL (1.8-2.4); PHOSPHORUS* 3.6 mg/dL (2.5-4.9); POTASSIUM 5.2 mmol/L (3.5-5.1)
[2021-06-18 10:06] LABS: HEMOGLOBIN 11.5 gm/dL (14.0-18.0); MCH 24.5 pg (26.0-34.0); MCHC 30.2 g/dL (28.0-37.0); MPV 11.5 fl. (7.2-11.1); RBC 4.7 mil/uL (4.50-6.00); RDW-CV 24.7 % (10.5-14.5); WBC 28.2 thou/uL (4.0-11.0)
--- NOTE | 2021-06-18 14:02 | NUR ---
ICU Rounds: Pt remains intubated and sedated Oxygen Needs: 35% FIO2 and 8 of Peep Code Status: DNR Intubated: 05/31/21 Living Situation: Lives with - Kira DPOA: No D/C Plan: A referral has been made to [facility] Pt has improved over the weekend. Weaning trials will be on going to see if they can wean him off the vent. Pt is now on hemodialysis. CM to continue to follow for discharge planning.
[2021-06-18 15:28] LABS: HEMATOCRIT 40.4 % (42.0-52.0); HEMOGLOBIN 12.5 gm/dL (14.0-18.0); MCH 25.1 pg (26.0-34.0); MCHC 30.9 g/dL (28.0-37.0); MCV 81.2 fL (80.0-100.0); MPV 11.4 fl. (7.2-11.1); RBC 4.98 mil/uL (4.50-6.00); RDW-CV 24.3 % (10.5-14.5); WBC 23.1 thou/uL (4.0-11.0)
[2021-06-18 15:39] LABS: CALCIUM 8.9 mg/dL (8.5-10.1); CREATININE 1.3 mg/dL (0.6-1.3); PHOSPHORUS* 2.8 mg/dL (2.5-4.9); POTASSIUM 4.3 mmol/L (3.5-5.1)
[2021-06-19] VITALS (20 sets, daily range): BP systolic 90–127; BP diastolic 35–58
[2021-06-19 04:50] LABS: ALBUMIN 2.6 g/dL (3.4-5.0); APTT 26.3 Seconds (25.0-31.3); CALCIUM 8.6 mg/dL (8.5-10.1); INR 1.1; MAGNESIUM 2.2 mg/dL (1.8-2.4); POTASSIUM 4.9 mmol/L (3.5-5.1); PROTIME 11.6 Seconds (9.20-11.50); TOTAL BILIRUBIN 0.7 mg/dL (<0.1-1.0); TOTAL PROTEIN 5.8 g/dL (6.4-8.2)
[2021-06-19 04:53] LABS: PHOSPHORUS* 3.1 mg/dL (2.5-4.9)
[2021-06-19 05:25] LABS: HEMATOCRIT 35.4 % (42.0-52.0); HEMOGLOBIN 10.9 gm/dL (14.0-18.0); MCH 24.8 pg (26.0-34.0); MCHC 30.7 g/dL (28.0-37.0); MCV 80.7 fL (80.0-100.0); MPV 9.7 fl. (7.2-11.1); NUCLEATED RBCS 0 /100WBC; PLATELET COUNT* 69 thou/uL (150-400); RBC 4.39 mil/uL (4.50-6.00); RDW-CV 25.2 % (10.5-14.5); WBC 19.1 thou/uL (4.0-11.0)
[2021-06-19 07:14] LABS: ABSOLUTE EOSINOPHILS 0.2 thou/uL (0.0-0.7); ABSOLUTE LYMPHOCYTES 1.1 thou/uL (0.8-5.3); ABSOLUTE MONOCYTES 0.8 thou/uL (0.0-1.2); ANISOCYTOSIS 1+; HYPOCHROMASIA 1+; PLATELET ESTIMATE ADEQUATE
[2021-06-19 08:31] LABS: BE 1.1 mmol/L (-2 to +3); PCO2 37.9 mmHg (35.0-45.0); PO2 101.1 mmHg (75.0-100.0)
--- NOTE | 2021-06-19 14:27 | NUR ---
Called - Kira at: [phone] to discuss dicharge planning. Discussed we are attempting to wean pt off went. Discussed when pt is stable the options of ARU vs SNF vs LTACH. immediately became upset asking "What makes you think I can't take care of my ?" visits at 5 PM every day - states she has difficulty ambulating from the parking lot to the ICU because of the distance. Discussed pt will have a high level of care needs. ARU - discussed requirements and does not feel pt can tolerate a total of 3 hours of day even with rest breaks. SNF - pt was sent to a SNF - [facility] and reports this is where he contracted Covid. She was not impressed with the care they offered and stated she will not allow him to go to a chcf. LTACH: discussed if pt would need a Peg/Trache that this would be the next logical referral - but became upset thinking this was a chcf and was upset that their was not an LTACH closer to her home. Ended the conversation with stating we will see if pt is able to wean off ventilator and that we would discuss care needs again and agreeable to this. CM to continue to follow for discharge planning.
[2021-06-20] VITALS (21 sets, daily range): BP systolic 96–159; BP diastolic 46–63
[2021-06-20 04:29] LABS: CALCIUM 8.6 mg/dL (8.5-10.1); POTASSIUM 5.3 mmol/L (3.5-5.1)
[2021-06-20 11:45] LABS: BE -2.2 mmol/L (-2 to +3); PCO2 35.2 mmHg (35.0-45.0); PO2 120.7 mmHg (75.0-100.0); pH 7.411 (7.340-7.450)
[2021-06-20 11:51] LABS: ABSOLUTE BASOPHILS 0.4 thou/uL (0.0-0.2); ABSOLUTE EOSINOPHILS 0.1 thou/uL (0.0-0.7); ABSOLUTE LYMPHOCYTES 0.5 thou/uL (0.8-5.3); ABSOLUTE MONOCYTES 1.2 thou/uL (0.0-1.2); ABSOLUTE NEUTROPHILS 27.7 thou/uL (1.6-8.1); BASOPHILS 1.5 %; EOSINOPHILS 0.2 %; HEMATOCRIT 34.7 % (42.0-52.0); HEMOGLOBIN 10.6 gm/dL (14.0-18.0); LYMPHOCYTES 1.7 %; MCH 24.8 pg (26.0-34.0); MCHC 30.6 g/dL (28.0-37.0); MCV 81.2 fL (80.0-100.0); MONOCYTES 4.1 %; MPV 10.2 fl. (7.2-11.1); NUCLEATED RBCS 0 /100WBC; PLATELET COUNT* 95 thou/uL (150-400); POLYS 92.5 %; RBC 4.27 mil/uL (4.50-6.00)
[2021-06-20 11:59] LABS: APTT 25.1 Seconds (25.0-31.3); INR 1.2
[2021-06-20 12:02] LABS: ALBUMIN 2.6 g/dL (3.4-5.0); CALCIUM 8.5 mg/dL (8.5-10.1); CREATININE 3.3 mg/dL (0.6-1.3); MAGNESIUM 2.3 mg/dL (1.8-2.4); POTASSIUM 5.6 mmol/L (3.5-5.1); TOTAL BILIRUBIN 0.9 mg/dL (<0.1-1.0); TOTAL PROTEIN 5.8 g/dL (6.4-8.2)
--- NOTE | 2021-06-20 13:07 | NUR ---
ICU Rounds: Remains intubated and sedated Intubated: 05/31/21 Code Status: DNR Oxygen Needs: 35% Fio2/ Peep of 8 Living Situation: Lives with - Kira DPOA: None Barriers to discharge: is resistant to any discussion of placement D/C Plan: Likely [facility] if Trache/Peg Tube placed Weaning trials on going. If not able to wean pt off the vent - doctor is recommending Trache/Peg tube placement on 06/22/21. Nephrology is recommending Dialysis. A referral has been made to [facility] but when attempting to discuss any kind of placement became extremely upset and is wanting to take pt home. CM to continue to follow for discharge planning.
--- NOTE | 2021-06-20 19:05 | NUR ---
PT REMAINS UNRESPONSIVE-CT OF HEAD/ABD/PELVIS DONE. TF RESTARTED-HAD LARGE LIQUID BM. LOTS OF GAS. CURRENTLY ON DIALYSIS. CONT ON LEVOPHED AT 0.03MCG/KG/MIN, GOOD WAVEFORM. SEE ki work FOR ASSESSMENT. CONT PLAN OF CARE
[2021-06-21] VITALS (33 sets, daily range): BP systolic 122–162; BP diastolic 49–59
[2021-06-21 04:42] LABS: ABSOLUTE BASOPHILS 0.1 thou/uL (0.0-0.2); ABSOLUTE EOSINOPHILS 0.1 thou/uL (0.0-0.7); ABSOLUTE LYMPHOCYTES 0.6 thou/uL (0.8-5.3); ABSOLUTE MONOCYTES 1.3 thou/uL (0.0-1.2); ABSOLUTE NEUTROPHILS 19.4 thou/uL (1.6-8.1); BASOPHILS 0.5 %; EOSINOPHILS 0.4 %; HEMATOCRIT 33.2 % (42.0-52.0); HEMOGLOBIN 10.2 gm/dL (14.0-18.0); LYMPHOCYTES 2.6 %; MCHC 30.9 g/dL (28.0-37.0); MCV 80.9 fL (80.0-100.0); MONOCYTES 6.1 %; NUCLEATED RBCS 0 /100WBC; PLATELET COUNT* 92 thou/uL (150-400); POLYS 90.4 %; WBC 21.4 thou/uL (4.0-11.0)
[2021-06-21 05:23] LABS: ALBUMIN 2.6 g/dL (3.4-5.0); CALCIUM 8.5 mg/dL (8.5-10.1); MAGNESIUM 2.2 mg/dL (1.8-2.4); TOTAL BILIRUBIN 0.8 mg/dL (<0.1-1.0); TOTAL PROTEIN 5.7 g/dL (6.4-8.2)
[2021-06-21 05:24] LABS: CREATININE 2.3 mg/dL (0.6-1.3); POTASSIUM 4.2 mmol/L (3.5-5.1)
[2021-06-21 09:13] LABS: BE -0.2 mmol/L (-2 to +3); PCO2 37.2 mmHg (35.0-45.0); pH 7.426 (7.340-7.450)
[2021-06-21 09:15] LABS: PO2 142.9 mmHg (75.0-100.0)
--- NOTE | 2021-06-21 14:32 | NUR ---
ATTEMPTED WEANING TRIAL PER DR CORTES AT 1420 ON PS 5 PEEP 8 FOR A DURATION OF TEN (10) MINUTES. PT RESPIRATIONS WERE 33-35 WITH TIDAL VOLUMES BETWEEN 160-230. PT APPEARED LABORED, ENDED TRIAL AT 1434.
--- NOTE | 2021-06-21 19:45 | NUR ---
I ASSUMED CARE OF THE PATIENT AT 1000. HE IS INTUBATED AND NONRESPONSIVE WITHOUT SEDATION. BED IS IN THE LOW LOCKED POSITION AND CALL LIGHT IS IN REACH. HE HAS NO GAG. NEW OG WAS PLACED AND WAS CONFIRMED WITH XRAY. GOAL IS TO MAINTAIN MAP OF GREATER THAN 60. JACQUELINE WANTS TO BE PRESENT FOR TRACH/PEG PROCEDURE AND NEEDS NOTICE TO BE HERE ON TIME. MEDICAL RECORDS WERE REQUESTED TODAY, STATES THAT PATIENT HAS FACTOR 5 AND THINKS HIS INR/PLT ARE DANGEROUSLY LOW. STOOL SPECIMEN IS ORDERED, BUT HE DID NOT HAVE A STOOL TODAY. BLOOD GLUCOSE IS MONITORED AND TREATED WITH INSULIN. LOTS OF SECRETIONS FROM HI/LOW. NO RESIDUALS POST TUBE FEEDS, GOAL OF 50/HR IS MET. WATER BOLUS' WERE GIVEN. LEVO IS TITRATED OFF. WILL CONTINUE TO MONITOR.
[2021-06-22] VITALS (22 sets, daily range): BP systolic 128–167; BP diastolic 49–67
[2021-06-22 03:03] LABS: ABSOLUTE BASOPHILS 0.1 thou/uL (0.0-0.2); ABSOLUTE LYMPHOCYTES 0.3 thou/uL (0.8-5.3); ABSOLUTE MONOCYTES 0.7 thou/uL (0.0-1.2); ABSOLUTE NEUTROPHILS 9.6 thou/uL (1.6-8.1); BASOPHILS 0.9 %; HEMOGLOBIN 9.7 gm/dL (14.0-18.0); LYMPHOCYTES 2.9 %; MCH 25.5 pg (26.0-34.0); MCHC 31.4 g/dL (28.0-37.0); MCV 81.3 fL (80.0-100.0); MONOCYTES 6.1 %; MPV 10.4 fl. (7.2-11.1); NUCLEATED RBCS 0 /100WBC; PLATELET COUNT* 82 thou/uL (150-400); POLYS 90.1 %; RBC 3.81 mil/uL (4.50-6.00); RDW-CV 26.6 % (10.5-14.5); WBC 10.7 thou/uL (4.0-11.0)
[2021-06-22 03:17] LABS: APTT 24.9 Seconds (25.0-31.3); INR 1.1
[2021-06-22 03:20] LABS: ALBUMIN 2.5 g/dL (3.4-5.0); CALCIUM 8.6 mg/dL (8.5-10.1); MAGNESIUM 2.4 mg/dL (1.8-2.4); POTASSIUM 4.5 mmol/L (3.5-5.1); TOTAL BILIRUBIN 0.7 mg/dL (<0.1-1.0); TOTAL PROTEIN 5.6 g/dL (6.4-8.2)
[2021-06-22 08:18] LABS: BE -4.9 mmol/L (-2 to +3); PCO2 35.8 mmHg (35.0-45.0); PO2 98.3 mmHg (75.0-100.0); pH 7.362 (7.340-7.450)
--- NOTE | 2021-06-22 10:40 | CON ---
[address] [address] CONSULTATION Name: TIANNA TRENT Marylu Room: [address] IN .R.#: [id number] Admission: 05/29/21 Attend Phys: Oziel Etienne Discharge: Date of : 60 Report #: [id number] THIS REPORT FOR: cc: BILL - No family physician/PCP BILL - No family physician/PCP Ariadne Grewal MD ~ DATE OF CONSULTATION: 06/06/2021 NEPHROLOGY CONSULTATION CONSULTING PHYSICIAN: Dr. Pierson and Dr. Sims. REASON FOR NEPHROLOGY CONSULTATION: Acute kidney injury, difficulty to ventilate. REASON FOR ADMISSION: COVID, shortness of breath. HISTORY OF PRESENT ILLNESS: The patient is a 61-year-old male with COVID pneumonia. He was admitted on 05/29 because of worsening shortness of breath, currently intubated and sedated in the ICU. He has been oliguric, although this morning is making a little bit more urine, creatinine has gone up from 1.4 on admission to 1.8. His potassium is normal at 4.3. His sodium is 148. Chest x-ray shows bilateral infiltrates and the patient is hypoxic on 100% FiO2 and 14 of PEEP. He has been treated for COVID pneumonia and Pulmonology is worried about pulmonary edema. He also has significant acute on chronic respiratory acidosis. ALLERGIES: IV IRON, MORPHINE, AND METFORMIN. REVIEW OF SYSTEMS: As mentioned in history of present illness, not able to obtain from the patient because he is intubated and sedated. HOME MEDICATIONS: Which include tizanidine, magnesium, insulin aspart, insulin lispro, lactulose, furosemide 80 mg b.i.d., warfarin, duloxetine, prednisone, Advair, allopurinol, carvedilol, ____, montelukast, ropinirole, albuterol, lorazepam, oxycodone, and tamsulosin. PAST MEDICAL AND SURGICAL HISTORY: Includes COPD, diabetes, hypertension, heart failure, inflammatory bowel disease, asthma, anal fissure. FAMILY HISTORY: Reviewed and noncontributory. SOCIAL HISTORY: He is a former smoker. Alcohol is used on special occasions. No recreational drug [place] [address] CONSULTATION Name: TWANTIANNA I Room: [address]#: [id number] Admission: 05/29/21 Attend Phys: Oziel Etienne Discharge: Date of : 60 Report #: [id number] PHYSICAL EXAMINATION: VITAL SIGNS: His blood pressure is 127/43. He is 88% FiO2 robledo on 100% FiO2 and 14 of PEEP. Temperature robledo, he was afebrile at 36.1, pulse was 58, respiratory rate was 22. GENERAL: The patient is intubated and sedated. HEAD AND EYES: Atraumatic, normocephalic. EARS, NOSE, AND THROAT: Normal ears, nose. ET tube in place. NECK: JVD was difficult to assess. CHEST: Bilaterally diminished breath sounds. No crackles. CARDIOVASCULAR: S1, S2 normal. No murmurs. ABDOMEN: Obese, soft. LOWER EXTREMITIES: There was 1+ upper extremity edema, but lower extremities were otherwise dry and there was wrinkling of skin. NEUROLOGICAL FUNCTION: The patient is currently sedated. PSYCHIATRIC: Not able to assess because he is sedated. LABORATORY DATA: WBC 12.1. His sodium is 148. His potassium is 4.3. His BUN is 64, his creatinine is 1.8, his CO2 is 33. Other labs are reviewed. IMAGING: Chest x-ray was reviewed. ASSESSMENT: 1. Oliguric acute kidney injury in the setting of COVID pneumonia. Baseline creatinine is not known, came in with a creatinine of 1.4, which has gone up to 1.8. Chest x-ray shows bilateral infiltrates. He is in acute respiratory distress syndrome, peripherally he looks dry. Difficult to ascertain volume status accurately. UA, renal ultrasound will be checked. 2. Acute respiratory failure, hypoxic hypercapnic in the setting of COVID pneumonia, acute respiratory distress syndrome. Primary team is treating. Ejection fraction is normal. 3. Hypermagnesemia. 4. Acute on chronic respiratory acidosis with metabolic compensation with metabolic acidosis because of acute kidney injury. 5. Chronic obstructive pulmonary disease exacerbation. Primary team is treating him for that. 6. Hypernatremia. Sodium is 148. PLAN: 1. From a renal standpoint, he is still making urine and has been started on Lasix drip per primary team. 2. Sodium is high, would recommend adding some free water to 50 mL q. 4. 3. He is in ARDS and needs some more fluid removal to help with oxygenation, will attempt dialysis, conventional dialysis today after temporary dialysis catheter is placed and reevaluate tomorrow for dialysis needs. This was [facility] [address] [place] [address] CONSULTATION Name: TIANNA TRENT I Room: [address] IN [facility].#: [id number] Admission: 05/29/21 Attend Phys: Oziel Etienne Discharge: Date of : 60 Report #: [id number] discussed with Pulmonology and the patient's nurse. 4. We will order a renal ultrasound and UA as well. 5. CPK was checked, it was only 17. 6. If there is not much response to Lasix, it can be stopped. 7. Mixed medications in D5 water to help with sodium. Thank you for the consultation. We will continue to follow with you. The patient is critically sick. I spent 45 minutes in critical care. The time was spent in chart review, placing orders and care coordination. We will follow with you. <ELECTRONICALLY SIGNED> By: Ariadne Grewal MD 06/22/21 1040 [id number] [id number] Grewal MD /nt
--- NOTE | 2021-06-22 14:35 | NUR ---
ICU Rounds: Pt remains intubated and sedated Intubated: 05/31/21 Oxygen Needs: 30%Fio2 / 5 of Peep Code Status: DNR Living Situation: Lives with - Kira DPOA: None D/C Plan: Likely LTACH if not able to wean off ventilator Weaning trials ongoing. If unable to wean off the ventilator over the weekend - likely Trache and Peg placement on 06/25/21. Dr. Nicholson spoke with and clarified LTACH ( as this social media director attempted to discuss and she thought LTACH meant a skilled nursing and she became upset yesterday). Referral has been made to [facility] since pt does not have a DPOA. Faxed updates today. CM to continue to follow for discharge planning.
[2021-06-23] VITALS (29 sets, daily range): BP systolic 95–150; BP diastolic 39–63
[2021-06-23 04:00] LABS: HEMATOCRIT 31.6 % (42.0-52.0); HEMOGLOBIN 9.8 gm/dL (14.0-18.0); MCH 25.3 pg (26.0-34.0); MCHC 31.1 g/dL (28.0-37.0); MCV 81.3 fL (80.0-100.0); MPV 10.3 fl. (7.2-11.1); NUCLEATED RBCS 0 /100WBC; PLATELET COUNT* 88 thou/uL (150-400); RBC 3.89 mil/uL (4.50-6.00); WBC 8.2 thou/uL (4.0-11.0)
[2021-06-23 04:18] LABS: ALBUMIN 2.5 g/dL (3.4-5.0); CALCIUM 8.4 mg/dL (8.5-10.1); CREATININE 2.4 mg/dL (0.6-1.3); MAGNESIUM 2.3 mg/dL (1.8-2.4); POTASSIUM 4.2 mmol/L (3.5-5.1); TOTAL BILIRUBIN 0.8 mg/dL (<0.1-1.0); TOTAL PROTEIN 5.6 g/dL (6.4-8.2)
[2021-06-23 06:39] LABS: ABSOLUTE BASOPHILS 0.2 thou/uL (0.0-0.2); ABSOLUTE LYMPHOCYTES 0.2 thou/uL (0.8-5.3); ABSOLUTE MONOCYTES 0.4 thou/uL (0.0-1.2); ABSOLUTE NEUTROPHILS 7.5 thou/uL (1.6-8.1)
[2021-06-23 06:40] LABS: ANISOCYTOSIS 3+; HYPOCHROMASIA 1+; POIKILOCYTOSIS 1+
[2021-06-23 06:41] LABS: GIANT PLATELETS FEW
[2021-06-23 15:18] LABS: BE -2.8 mmol/L (-2 to +3); PCO2 35.6 mmHg (35.0-45.0)
[2021-06-24] VITALS (41 sets, daily range): BP systolic 88–131; BP diastolic 41–70
[2021-06-24 04:16] LABS: HEMATOCRIT 29.9 % (42.0-52.0); HEMOGLOBIN 9.4 gm/dL (14.0-18.0); MCH 25.5 pg (26.0-34.0); MCHC 31.4 g/dL (28.0-37.0); MPV 10.3 fl. (7.2-11.1); RBC 3.69 mil/uL (4.50-6.00); WBC 8.1 thou/uL (4.0-11.0)
[2021-06-24 04:49] LABS: CALCIUM 8.3 mg/dL (8.5-10.1); CREATININE 2.9 mg/dL (0.6-1.3); POTASSIUM 4.5 mmol/L (3.5-5.1)
[2021-06-25] VITALS (24 sets, daily range): BP systolic 82–127; BP diastolic 47–62
[2021-06-25 03:58] LABS: HEMATOCRIT 27.5 % (42.0-52.0); HEMOGLOBIN 8.8 gm/dL (14.0-18.0); MCH 25.8 pg (26.0-34.0); MCHC 31.8 g/dL (28.0-37.0); MCV 81.1 fL (80.0-100.0); RBC 3.39 mil/uL (4.50-6.00); RDW-CV 26.3 % (10.5-14.5); WBC 7.7 thou/uL (4.0-11.0)
[2021-06-25 04:23] LABS: ALBUMIN 2.3 g/dL (3.4-5.0); CALCIUM 8.6 mg/dL (8.5-10.1); CREATININE 3.5 mg/dL (0.6-1.3); MAGNESIUM 2.5 mg/dL (1.8-2.4); POTASSIUM 5.1 mmol/L (3.5-5.1); TOTAL BILIRUBIN 0.7 mg/dL (<0.1-1.0); TOTAL PROTEIN 5.3 g/dL (6.4-8.2)
[2021-06-25 08:12] LABS: BE -0.5 mmol/L (-2 to +3); PCO2 39.3 mmHg (35.0-45.0); PO2 110.2 mmHg (75.0-100.0); pH 7.405 (7.340-7.450)
[2021-06-25 11:23] LABS: ABSOLUTE EOSINOPHILS 0.1 thou/uL (0.0-0.7); ABSOLUTE MONOCYTES 0.3 thou/uL (0.0-1.2); HEMOGLOBIN 8.3 gm/dL (14.0-18.0); NUCLEATED RBCS 0 /100WBC; WBC 4.5 thou/uL (4.0-11.0)
[2021-06-25 11:26] LABS: ABSOLUTE LYMPHOCYTES 0.2 thou/uL (0.8-5.3); ABSOLUTE NEUTROPHILS 3.9 thou/uL (1.6-8.1); BASOPHILS 0.4 %; EOSINOPHILS 2.3 %; HEMATOCRIT 26.4 % (42.0-52.0); LYMPHOCYTES 5.5 %; MCH 25.6 pg (26.0-34.0); MCHC 31.4 g/dL (28.0-37.0); MCV 81.6 fL (80.0-100.0); MONOCYTES 6.4 %; MPV 9.7 fl. (7.2-11.1); PLATELET COUNT* 64 thou/uL (150-400); POLYS 85.4 %; RBC 3.23 mil/uL (4.50-6.00); RDW-CV 26.2 % (10.5-14.5)
[2021-06-25 11:29] LABS: CALCIUM 8.2 mg/dL (8.5-10.1)
[2021-06-25 11:30] LABS: CREATININE 1.8 mg/dL (0.6-1.3); POTASSIUM 3.4 mmol/L (3.5-5.1)
[2021-06-25 11:55] LABS: HYPOCHROMASIA 2+; MACROCYTES Occasional; MICROCYTES 1+; PLATELET ESTIMATE DECREASED
--- NOTE | 2021-06-25 14:08 | NUR ---
Esmer from [facility] reports they can accept pt and they would like for us to set [facility]. Staff has had several discussions with and she now appears willing to send pt to [facility] [place] [place] [facility] as it is not a senior living. She is fearful with the [facility] that we were trying to send him to a senior living. Faxed updated clinicals today to [facility]. Pt can have a Trache/Peg tube placed their but they will attempt to wean him off the ventilator first. CM to continue to follow for discharge planning.
[2021-06-26] VITALS (15 sets, daily range): BP systolic 90–126; BP diastolic 44–61
[2021-06-26 05:36] LABS: HEMATOCRIT 25.9 % (42.0-52.0); HEMOGLOBIN 8.2 gm/dL (14.0-18.0); MCH 25.7 pg (26.0-34.0); MCHC 31.8 g/dL (28.0-37.0); MPV 10.6 fl. (7.2-11.1); RBC 3.19 mil/uL (4.50-6.00); RDW-CV 25.9 % (10.5-14.5); WBC 6.8 thou/uL (4.0-11.0)
--- NOTE | 2021-06-26 06:00 | NUR ---
NO ACUTE EVENTS OVERNIGHT. PT TOLERATING TUBE FEEDINGS WITH LOW RESIDUALS. SR ON UNIFIED COMMUNICATIONS ARCHITECT. AFEBRILE THIS SHIFT. Q2H REPOSITIONING COMPLETED.
[2021-06-26 06:16] LABS: ALBUMIN 2.6 g/dL (3.4-5.0); CALCIUM 8.6 mg/dL (8.5-10.1); CREATININE 2.6 mg/dL (0.6-1.3); MAGNESIUM 2.4 mg/dL (1.8-2.4); TOTAL BILIRUBIN 0.8 mg/dL (<0.1-1.0); TOTAL PROTEIN 5.4 g/dL (6.4-8.2)
[2021-06-26 06:31] LABS: POTASSIUM 4.4 mmol/L (3.5-5.1)
--- NOTE | 2021-06-26 08:40 | CON ---
[address] [address] CONSULTATION Name: TWANTIANNA Marylu Room: [address] IN .R.#: [id number] Admission: 05/29/21 Attend Phys: Oziel Etienne Discharge: Date of : 60 Report #: [id number] THIS REPORT FOR: cc: BILL - Tori family physician/PCP BILL - Tori family physician/PCP Becky Leonard MD ~ DATE OF CONSULTATION: 05/30/2021 REQUESTING PHYSICIAN: Job Pierson DO. REASON FOR CONSULTATION: Leukopenia. HISTORY OF PRESENT ILLNESS: The patient is a 61-year-old man who is admitted to the hospital with cough, shortness of breath, fevers. He is diagnosed with COVID-19 pneumonia, respiratory failure. He had normal white count. On admission, his white count was 4.5. Next day of admission, white count declined to 1.5. Hematology consult is requested. PAST MEDICAL HISTORY: Significant for recent ____ surgery. The patient does not have a history of hematological problems. FAMILY HISTORY: Not able to obtain. REVIEW OF SYSTEMS: Not able to obtain. PHYSICAL EXAMINATION: VITAL SIGNS: The patient has not been examined because of COVID-19 isolation. The patient has been discussed with nurse and chart has been reviewed. LABORATORY DATA: White count 1.3, hemoglobin 9.4, MCV 79.5, platelets 115, 97% segmented neutrophils, 2.2% lymphocyte. Sodium 142, BUN 34, creatinine 1.3. Chest x-ray reviewed, shows pulmonary emboli and right ___ and medial lobe infiltrate. ASSESSMENT AND PLAN: Leukopenia. The patient does not have a history of leukopenia. He was hospitalized in January for spinal surgery at . His white count was normal. Total white count was 7.5. During hospitalization, he retains normal white count. WBC on admission is normal, now dropped abruptly. I reviewed medication list. I do not see any medications causing neutropenia and leukopenia commonly. Most likely cause of leukopenia is viral due to COVID-19 disease. His leukopenia, which is more suggestive of viral etiology. Continue to monitor. Going to order CBC with [place] [address] CONSULTATION Name: TIANNA TRENT I Room: [address] IN [facility]#: [id number] Admission: 05/29/21 Attend Phys: Oziel Etienne Discharge: Date of : 60 Report #: [id number] Thank you very much for consultation. We will follow the patient with you. <ELECTRONICALLY SIGNED> By: Becky Leonard MD 06/26/21 0840 [id number] Leonard MD /nt
[2021-06-26] MEDS ORDERED: PROTONIX IV40 MG IVPUSH (10:52)
[2021-06-26] MEDS ORDERED: IPRAT-ALBUT 0.5-3 ML INH (10:52)
[2021-06-26] MEDS ORDERED: NOVOLOG100 UNIT/M SUBQ (10:52)
[2021-06-26] MEDS ORDERED: DEXAMETHASO0.1 MG/M1 IVPUSH (10:52)
[2021-06-26] MEDS ORDERED: SENEXON-S 50-81 EACH PO (10:52)
[2021-06-26] MEDS ORDERED: MIDODRINE HCL 55 M1 PERTUBE (10:52)
[2021-06-26] MEDS ORDERED: BROVANA15 MCG/2 M INH (10:52)
[2021-06-26] MEDS ORDERED: LANTUS SUBQ (10:52)
[2021-06-26] MEDS ORDERED: ACIDOPHILUS1 EAC4 PO (10:52)
--- NOTE | 2021-06-26 12:54 | NUR ---
ICU Rounds: Patient was accepted to [facility] yesterday 06/25. Spoke to yesterday 06/25 (Kira [phone]) at great lengths [facility]. She understands what [facility] is and how it will help the patient. agreeable with transport 06/26. Spoke to [facility] who advised that they can accept patient today 06/26 with a pickup time at 2pm. Nursing and provider aware. DC summary and med list faxed to [facility]. Patient to be transported via ambulance. CM to complete transport form. Chart will need to be copied by nursing. currently at bedside and will follow ambulance to [facility]. Patient discharging in stable condition. [facility] ([facility]) Accepting Physician: Dr. Guzman Nurse Report Line: [phone] No other CM needs noted at this time.
--- NOTE | 2021-06-26 17:00 | NUR ---
PT DISCHARGED TO LTACH AT APPROXIMATELY 1640, REPORT CALLED INTO ACCEPTING [facility]. ALL PERSONAL BELONGINGS SENT WITH PTS , TO FOLLOW EMS TO LTACH.
== END 2021-06-26 16:40 | DRG 870 ==
LOC: M.ERS 14:30 → M.ICU 15:50 → M.ORTHSURG 15:50 → M.TBA-ER 15:50 → M.ORTHSURG 22:57 → M.ICU 05-31 04:15
PROVIDERS: Family Medicine; Internal Medicine; Internal Medicine Critical Care Medicine; Internal Medicine Hematology & Oncology; Internal Medicine Nephrology; Internal Medicine Pulmonary Disease; Pediatrics; ADMIT Internal Medicine; ATTEND Internal Medicine
PROC: XW033E5 Introduction of Remdesivir Anti-infective into Peripheral Vein, Percutaneous Approach, New Technology Group 5 (ICD-10-PCS; 2021-05-29)
PROC: 5A09457 Assistance with Respiratory Ventilation, 24-96 Consecutive Hours, Continuous Positive Airway Pressure (ICD-10-PCS; 2021-05-29)
PROC: 0BH17EZ Insertion of Endotracheal Airway into Trachea, Via Natural or Artificial Opening (ICD-10-PCS; principal; 2021-05-31)
PROC: 5A1955Z Respiratory Ventilation, Greater than 96 Consecutive Hours (ICD-10-PCS; 2021-05-31)
PROC: 02HV33Z Insertion of Infusion Device into Superior Vena Cava, Percutaneous Approach (ICD-10-PCS; 2021-06-07)
DX: A41.89 Other specified sepsis (principal); U07.1 COVID-19; J12.82 Pneumonia due to coronavirus disease 2019; N17.0 Acute kidney failure with tubular necrosis; J96.21 Acute and chronic respiratory failure with hypoxia; J96.22 Acute and chronic respiratory failure with hypercapnia; J44.0 Chronic obstructive pulmonary disease with (acute) lower respiratory infection; J44.1 Chronic obstructive pulmonary disease with (acute) exacerbation; D68.9 Coagulation defect, unspecified; I47.1 Supraventricular tachycardia; N30.00 Acute cystitis without hematuria; G93.40 Encephalopathy, unspecified; E87.0 Hyperosmolality and hypernatremia; J45.909 Unspecified asthma, uncomplicated; E66.01 Morbid (severe) obesity due to excess calories; I50.9 Heart failure, unspecified; E11.65 Type 2 diabetes mellitus with hyperglycemia; I87.2 Venous insufficiency (chronic) (peripheral); G47.33 Obstructive sleep apnea (adult) (pediatric); E11.51 Type 2 diabetes mellitus with diabetic peripheral angiopathy without gangrene; Z66 Do not resuscitate; E83.41 Hypermagnesemia; D64.9 Anemia, unspecified; I11.0 Hypertensive heart disease with heart failure; Z79.899 Other long term (current) drug therapy; Z88.6 Allergy status to analgesic agent; Z88.8 Allergy status to other drugs, medicaments and biological substances; Z80.8 Family history of malignant neoplasm of other organs or systems; Z87.891 Personal history of nicotine dependence; Z68.34 Body mass index [BMI] 34.0-34.9, adult; E83.42 Hypomagnesemia